=== PATIENT | female | born 1955 | race Caucasian/White ===

== ENCOUNTER 2016-07-07 01:17 | Emergency (ER) | payer SELFPAY ==
[2016-07-07] MEDS ORDERED: ASPIRIN 81 MG TABLET, CHEWABLE PO ONE (03:36)
[2016-07-07 04:43] LABS: ABSOLUTE BASOPHILS # (AUTO) 0.1 10^3/uL (0.0-0.2); ABSOLUTE EOSINOPHILS # (AUTO) 0.4 10^3/uL (0.0-0.6); ABSOLUTE LYMPHOCYTES (AUTO) 4.5 10^3/uL (0.5-4.7); ABSOLUTE MONOCYTES (AUTO) 0.8 10^3/uL (0.1-1.4); ABSOLUTE NEUT (AUTO) 4.3 10^3/uL (1.7-8.2); BASOPHILS % (AUTO) 0.9 % (0-2); EOSINOPHILS % (AUTO) 3.9 % (0-6); LYMPHOCYTES % (AUTO) 44.5 % (13-45); MEAN CORPUSCULAR HGB CONC 33.3 g/dL (32.0-36.0); MEAN CORPUSCULAR VOLUME 90 fl (80-97); MONOCYTES % (AUTO) 7.7 % (3-13); RED BLOOD COUNT 4.34 10^6/uL (3.72-5.28); RED CELL DISTRIBUTION WIDTH 13.9 % (11.5-14.0)
[2016-07-07 04:52] LABS: ALANINE AMINOTRANSFERASE 30 U/L (9-52); ALBUMIN 4.5 g/dL (3.5-5.0); ALKALINE PHOSPHATASE 83 U/L (38-126); ANION GAP 11 (5-19); APPEARANCE,URINE CLEAR; ASPARTATE AMINO TRANSFERASE 26 U/L (14-36); BILIRUBIN,TOTAL 0.3 mg/dL (0.2-1.3); BILIRUBIN,URINE NEGATIVE (NEGATIVE); BLOOD UREA NITROGEN 10 mg/dL (7-20); CALCIUM 10.9 mg/dL (8.4-10.2); CARBON DIOXIDE 25 mmol/L (22-30); CHLORIDE 107 mmol/L (98-107); CREATINE KINASE 83 U/L (30-135); CREATININE RESULT 0.78 mg/dL (0.52-1.25); GLUCOSE 91 mg/dL (75-110); GLUCOSE, URINE NEGATIVE (NEGATIVE); KETONES,URINE NEGATIVE (NEGATIVE); LEUKOCYTE ESTERASE,URINE NEGATIVE (NEGATIVE); LIPASE 235.8 U/L (23-300); NITRITE,URINE NEGATIVE (NEGATIVE); POTASSIUM 3.8 mmol/L (3.6-5.0); PROTEIN,URINE NEGATIVE (NEGATIVE); URINE SPECIFIC GRAVITY 1.006; UROBILINOGEN,URINE NEGATIVE mg/dL (<2.0)
[2016-07-07 05:03] LABS: CREATINE KINASE MB 0.65 ng/mL (<4.55)
[2016-07-07 05:05] LABS: TROPONIN I < 0.012 ng/mL
--- NOTE | 2016-07-07 05:33 | ER Document Report ---
ED Cardiac - General Chief Complaint: Chest Pain Stated Complaint: CHEST PAIN Mode of Arrival: Ambulatory Information source: Patient Notes: Patient is a 61-year-old female who presents to the ER today for chest pain with cough 1-2 weeks. Patient states that it she is having some left neck pain in the back of her neck but also states that "that's probably from sleeping wrong on it." She denies any numbness or tingling anywhere, shortness of breath, nausea, vomiting. She does have a history of COPD and asthma. TRAVEL OUTSIDE OF THE [place] IN LAST 30 DAYS: No - Related Data Allergies/Adverse Reactions: iodine [Iodine] Allergy (Unknown, Verified 09/20/11 05:21) levofloxacin [From Levaquin] Allergy (Unknown, Verified 09/20/11 05:21) Shellfish * [Shellfish] Allergy (Unknown, Verified 09/20/11 05:21) Past Medical History - General Information source: Patient - Social History Smoking Status: Current Every Day Smoker Family History: Reviewed & Not Pertinent Patient has suicidal ideation: No Patient has homicidal ideation: No - Past Medical History Cardiac Medical History: Reports: Hx Hypercholesterolemia, Hx Hypertension Pulmonary Medical History: Reports: Hx COPD Psychiatric Medical History: Reports: Hx Bipolar Disorder Past Surgical History: Reports: Hx Hysterectomy, Hx Orthopedic Surgery - carpal tunnel release, Hx Tonsillectomy, Hx Tubal Ligation - Immunizations Immunizations up to date: Yes Hx Diphtheria, Pertussis, Tetanus Vaccination: No Hx Pneumococcal Vaccination: 07/04/00 Review of Systems - Review of Systems Constitutional: No symptoms reported EENT: No symptoms reported Cardiovascular: See HPI Respiratory: No symptoms reported Gastrointestinal: No symptoms reported Genitourinary: No symptoms reported Female Genitourinary: No symptoms reported Musculoskeletal: No symptoms reported Skin: No symptoms reported Hematologic/Lymphatic: No symptoms reported Neurological/Psychological: No symptoms reported Physical Exam - Vital signs Vitals: Temp Pulse BP Pulse Ox 97.9 F 65 171/77 H 93 07/07/16 01:48 07/07/16 01:48 07/07/16 01:48 07/07/16 01:48 - Notes Notes: PHYSICAL EXAMINATION: GENERAL: Well-appearing, reading a book and resting comfortably, and in no acute distress. HEAD: Atraumatic, normocephalic. EYES: Pupils equal round and reactive to light, extraocular movements intact, sclera anicteric, conjunctiva are normal. NECK: slightly tender to palpation over left trapezius, Normal range of motion, supple without lymphadenopathy LUNGS: CTAB and equal. No wheezes rales or rhonchi. HEART/CHEST: tender to palpation over left chest only, Regular rate and rhythm without murmurs ABDOMEN: Soft, no tenderness. No guarding, no rebound BACK: no vertebral tenderness, normal ROM GI/: no CVA tenderness EXTREMITIES: Normal range of motion, no pitting edema. No cyanosis. NEUROLOGICAL: Cranial nerves grossly intact. Normal sensory/motor exams. PSYCH: Normal mood, normal affect. SKIN: Warm, Dry, normal turgor, no rashes or lesions noted Course - Re-evaluation Re-evalutation: 07/07/16 05:34 Labwork today is completely unremarkable with normal white blood cell count and normal cardiac enzymes, unremarkable chest x-ray and an EKG normal sinus rhythm at a rate of 61 bpm without evidence of abnormality or ischemia. Patient is resting comfortably reading a book in the room and came to the ER with multiple chronic complaints. I did advise her that this is not a primary care office and that she needs to follow-up with them. - Vital Signs Vital signs: Temp Pulse Resp BP Pulse Ox 97.9 F 65 171/77 H 93 07/07/16 01:48 07/07/16 01:48 07/07/16 01:48 07/07/16 01:48 - Laboratory Result Diagrams: 07/07/16 04:26 07/07/16 04:26 Laboratory results interpreted by me: 07/07/16 07/07/16 04:26 04:26 Calcium 10.9 H Urine Blood SMALL H Discharge - Discharge Clinical Impression: Cough Chest pain Qualifiers: Chest pain type: unspecified Qualified Code(s): R07.9 - Chest pain, unspecified Condition: Stable Disposition: HOME, SELF-CARE Instructions: Chest Pain of Unclear Cause ([facility]) Additional Instructions: Return immediately for any new or worsening symptoms. Follow up with primary care provider, call tomorrow to make followup appointment. Prescriptions: Benzonatate [Tessalon Perle 100 mg Capsule] 100 mg PO Q8HP PRN #40 cap PRN Reason: Azithromycin [Zithromax 250 mg Tablet] 250 mg PO ASDIR PRN #6 tablet PRN Reason: Referrals: [facility] [Provider Group] - Follow up as needed
[2016-07-07] MEDS ORDERED: AZITHROMYCIN 250 MG TABLET PO ONE (05:39)
[2016-07-07] MEDS ORDERED: BENZONATATE 100 MG CAPSULE PO ONE (05:39)
[2016-07-07 06:12] VITALS: BP 151/87
--- NOTE | 2016-07-07 15:55 | EKG REPORT ---
SEVERITY:- BORDERLINE ECG - SINUS RHYTHM BORDERLINE T ABNORMALITIES, ANT-LAT LEADS : Confirmed by: Jerad Sen 07-Jul-2016 15:55:13
== END 2016-07-07 06:12 | disposition home or self-care (01) ==
LOC: ER 01:17
DX: R07.9 Chest pain, unspecified (principal); R05 Cough; M54.2 Cervicalgia; F17.210 Nicotine dependence, cigarettes, uncomplicated
CPT/HCPCS: 36415; 71010; 80053; 81001; 82550; 82553; 83690; 84484; 85025; 93005; 93010; 99285

== ENCOUNTER 2016-08-30 23:34 | Emergency (ER) | payer SELFPAY ==
[2016-08-31] MEDS ORDERED: ASPIRIN 81 MG TABLET, CHEWABLE PO ONE (00:08)
[2016-08-31 00:47] LABS: ABSOLUTE BASOPHILS # (AUTO) 0.1 10^3/uL (0.0-0.2); ABSOLUTE EOSINOPHILS # (AUTO) 0.4 10^3/uL (0.0-0.6); ABSOLUTE LYMPHOCYTES (AUTO) 4.4 10^3/uL (0.5-4.7); ABSOLUTE MONOCYTES (AUTO) 0.8 10^3/uL (0.1-1.4); ABSOLUTE NEUT (AUTO) 6.9 10^3/uL (1.7-8.2); BASOPHILS % (AUTO) 0.7 % (0-2); EOSINOPHILS % (AUTO) 3.5 % (0-6); HEMATOCRIT 37.6 % (36.0-47.0); HEMOGLOBIN 12.6 g/dL (12.0-15.5); HGB HCT DIFFERENCE 0.2; LYMPHOCYTES % (AUTO) 34.7 % (13-45); MEAN CORPUSCULAR HEMOGLOBIN 30.7 pg (27.0-33.4); MEAN CORPUSCULAR HGB CONC 33.6 g/dL (32.0-36.0); MEAN CORPUSCULAR VOLUME 91 fl (80-97); MONOCYTES % (AUTO) 6.3 % (3-13); RED BLOOD COUNT 4.12 10^6/uL (3.72-5.28); RED CELL DISTRIBUTION WIDTH 13.9 % (11.5-14.0); SEGMENTED NEUTROPHILS % (AUTO) 54.8 % (42-78); WHITE BLOOD COUNT 12.6 10^3/uL (4.0-10.5)
[2016-08-31 01:15] LABS: ALANINE AMINOTRANSFERASE 26 U/L (9-52); ALBUMIN 4.4 g/dL (3.5-5.0); ALKALINE PHOSPHATASE 87 U/L (38-126); ANION GAP 11 (5-19); ASPARTATE AMINO TRANSFERASE 27 U/L (14-36); BILIRUBIN,TOTAL 0.4 mg/dL (0.2-1.3); BLOOD UREA NITROGEN 8 mg/dL (7-20); CARBON DIOXIDE 25 mmol/L (22-30); CHLORIDE 107 mmol/L (98-107); CREATINE KINASE 145 U/L (30-135); CREATININE RESULT 0.89 mg/dL (0.52-1.25); GLUCOSE 96 mg/dL (75-110); POTASSIUM 3.8 mmol/L (3.6-5.0); SODIUM 143.3 mmol/L (137-145)
[2016-08-31] MEDS ORDERED: HYDROCODONE/ACETAMINOPHEN 5-325 MG TABLET PO ONE (01:19)
[2016-08-31] MEDS ORDERED: IPRATROPIUM/ALBUTEROL 0.5-2.5 MG/3 ML AMPUL NEB ONE (01:20)
[2016-08-31] MEDS ORDERED: FAMOTIDINE 20 MG TABLET PO ONE (01:20)
[2016-08-31] MEDS ORDERED: PREDNISONE 20 MG TABLET PO ONE (01:20)
--- NOTE | 2016-08-31 01:22 | ER Document Report ---
ED General - General Chief Complaint: Cough Stated Complaint: CHEST PAIN/DIFFICULTY BREATHING Time seen by provider: 01:10 Notes: Patient is a 61-year-old female that comes emergency department for chief complaint of 2 weeks of symptoms of cough and worsening congestion with pain in her sinuses worse on the right side, some postnasal drainage, and she states that now her chest is very painful with each coughing episode. She denies any fevers. She reports occasional wheezing and shortness of breath. She is a daily smoker, has Advair and albuterol at home, does not currently have a primary care but has a close follow-up with one arranged already. Patient has history of GERD, denies hypertension, diabetes, or history of MS. TRAVEL OUTSIDE OF THE [place] IN LAST 30 DAYS: No - Related Data Allergies/Adverse Reactions: iodine [Iodine] Allergy (Unknown, Verified 08/30/16 23:44) levofloxacin [From Levaquin] Allergy (Unknown, Verified 08/30/16 23:44) Shellfish * [Shellfish] Allergy (Unknown, Verified 08/30/16 23:44) Past Medical History - General Information source: Patient, Relative - Social History Smoking Status: Current Every Day Smoker Chew tobacco use (# tins/day): No Smoking Education Provided: Yes - <3 min Frequency of alcohol use: None Drug Abuse: None Lives with: Family Family History: Reviewed & Not Pertinent Patient has suicidal ideation: No Patient has homicidal ideation: No - Past Medical History Cardiac Medical History: Reports: Hx Hypercholesterolemia, Hx Hypertension Pulmonary Medical History: Reports: Hx COPD Renal/ Medical History: Denies: Hx Peritoneal Dialysis Psychiatric Medical History: Reports: Hx Bipolar Disorder Past Surgical History: Reports: Hx Hysterectomy, Hx Orthopedic Surgery - carpal tunnel release, Hx Tonsillectomy, Hx Tubal Ligation - Immunizations Immunizations up to date: Yes Hx Diphtheria, Pertussis, Tetanus Vaccination: No Hx Pneumococcal Vaccination: 07/04/00 Review of Systems - Review of Systems Constitutional: No symptoms reported EENT: No symptoms reported Cardiovascular: See HPI Respiratory: See HPI Gastrointestinal: No symptoms reported Genitourinary: No symptoms reported Female Genitourinary: No symptoms reported Musculoskeletal: See HPI Skin: No symptoms reported Hematologic/Lymphatic: No symptoms reported Neurological/Psychological: No symptoms reported Physical Exam - Vital signs Vitals: Temp Pulse Resp BP Pulse Ox 98.2 F 60 20 145/74 H 98 08/30/16 23:37 08/30/16 23:37 08/30/16 23:37 08/30/16 23:37 08/30/16 23:37 Interpretation: Normal - General General appearance: Appears well, Alert In distress: None - HEENT Head: Normocephalic, Atraumatic Eyes: Normal Conjunctiva: Normal Extraocular movements intact: Yes Eyelashes: Normal Pupils: PERRL Ears: Normal External canal: Normal Tympanic membrane: Normal Sinus: Maxillary - Bilateral, worse on the left Nasal: Normal Mouth/Lips: Normal Mucous membranes: Normal Pharynx: Normal Neck: Normal - Respiratory Respiratory status: No respiratory distress. No: Labored, Tachypnea Chest status: Nontender Breath sounds: Nonproductive cough - Patient has episodes where she coughs constantly and coughs very hard, when these resolve she is calm and well- appearing with no tachypnea, labored breathing, or distress, Other - A few coarse breath sounds bilaterally. No: Wheezing - Cardiovascular Rhythm: Regular. No: Tachycardia Heart sounds: Normal auscultation, S1 appreciated, S2 appreciated Murmur: No - Abdominal Inspection: Normal Distension: No distension Bowel sounds: Normal Tenderness: Nontender Organomegaly: No organomegaly - Back Back: Normal, Nontender - Extremities General upper extremity: Normal inspection, Nontender, Normal color, Normal ROM , Normal temperature General lower extremity: Normal inspection, Nontender, Normal color, Normal ROM , Normal temperature, Normal weight bearing. No: Karen's sign - Neurological Neuro grossly intact: Yes Cognition: Normal Orientation: AAOx4 Miri Coma Scale Eye Opening: Spontaneous [place] Coma Scale Verbal: Oriented [place] Coma Scale Motor: Obeys Commands Miri Coma Scale Total: 15 Speech: Normal Motor strength normal: LUE, RUE, LLE, RLE Sensory: Normal - Psychological Associated symptoms: Normal affect, Normal mood - Skin Skin Temperature: Warm Skin Moisture: Dry Skin Color: Normal Course - Re-evaluation Re-evalutation: Patient well-appearing and conversational, however she has episodes where she has a persistent nonproductive painful cough. A few coarse breath sounds bilaterally. Patient is much improved on reexamination. Cough has been ongoing for 2 weeks. Chest x-ray, laboratory workup, EKG showed no acute findings. Examination is consistent with COPD exacerbation and bronchitis. Patient also has tender sinuses worse on the left maxillary area. Treating with antibiotics, prednisone, discussed smoking cessation, discussed primary care follow-up and return precautions, patient states understanding and agreement. - Vital Signs Vital signs: Temp Pulse Resp BP Pulse Ox 98.2 F 80 20 140/75 H 98 08/30/16 23:37 08/31/16 03:35 08/31/16 03:35 08/31/16 03:35 08/31/16 03:35 - Laboratory Result Diagrams: 08/31/16 00:25 08/31/16 00:25 Laboratory results interpreted by me: 08/31/16 08/31/16 00:25 00:25 WBC 12.6 H Calcium 11.0 H Creatine Kinase 145 H Discharge - Discharge Clinical Impression: Cough, Shortness of breath, Tobacco abuse Sinusitis Qualifiers: Sinusitis location: maxillary Chronicity: acute Recurrence: non-recurrent Qualified Code(s): J01.00 - Acute maxillary sinusitis, unspecified Condition: Stable Disposition: HOME, SELF-CARE Additional Instructions: Examination and workup are consistent with bronchitis and a sinus infection. Take the prednisone as directed, taking the azithromycin antibiotic as directed , take the [place] if needed for cough/pain, continue your inhalers. Stop smoking. Follow-up with your primary care. Return to the emergency department for any concerning or worsening symptoms. Prescriptions: Azithromycin [Zithromax 250 mg Tablet] 250 mg PO ASDIR PRN #6 tablet PRN Reason: Hydrocodone/Acetaminophen [[place] 5-325 mg Tablet] 1 - 2 tab PO ASDIR #12 tablet Prednisone 20 mg PO DAILY #15 tablet Forms: Elevated Blood Pressure
[2016-08-31 01:27] LABS: CREATINE KINASE MB 1.23 ng/mL (<4.55); TROPONIN I < 0.012 ng/mL
[2016-08-31 03:36] VITALS: BP 140/75
--- NOTE | 2016-08-31 07:59 | EKG REPORT ---
SEVERITY:- BORDERLINE ECG - SINUS RHYTHM NONSPECIFIC ST-T CHANGES ANTEROSEPTAL : Confirmed by: Seun Alvarez MD 31-Aug-2016 07:58:17
== END 2016-08-31 03:35 | disposition home or self-care (01) ==
LOC: ER 23:34
DX: J01.00 Acute maxillary sinusitis, unspecified (principal); R05 Cough; R06.02 Shortness of breath; R06.00 Dyspnea, unspecified; R07.9 Chest pain, unspecified; F17.200 Nicotine dependence, unspecified, uncomplicated; J44.9 Chronic obstructive pulmonary disease, unspecified; E78.00 Pure hypercholesterolemia, unspecified; Z90.710 Acquired absence of both cervix and uterus
CPT/HCPCS: 93005; 94640; 99284; 36415; 82553; 82550; 85025; 80053; 84484; 71020; 93010; J7512; J7620

== ENCOUNTER 2017-04-15 20:18 | Emergency (ER) | payer SELFPAY ==
[2017-04-15 20:31] VITALS: BP 152/90
--- NOTE | 2017-04-16 00:32 | ER Document Report ---
ED General - General Chief Complaint: Skin Sore(s) Stated Complaint: POSSIBLE ABSCESS Time Seen by Provider: 04/15/17 23:17 Notes: Patient is a 62-year-old female who presents with a dysplastic nevi on her mid back that has become irritating over the last 2-3 days. Patient describes the area as being itchy, with a scratching, mild discomfort. Touching area worsens her symptoms. She has not tried anything to improve her symptoms. She has had similar symptoms in the past that required surgical removal of the affected areas. She has not seen a primary care doctor regarding today's concerns. She denies any spreading redness from the area, fever or constitutional symptoms. TRAVEL OUTSIDE OF THE [place] IN LAST 30 DAYS: No - Related Data Allergies/Adverse Reactions: iodine [Iodine] Allergy (Unknown, Verified 04/15/17 20:29) levofloxacin [From Levaquin] Allergy (Unknown, Verified 04/15/17 20:29) Shellfish * [Shellfish] Allergy (Unknown, Verified 04/15/17 20:29) Past Medical History - General Information source: Patient - Social History Smoking Status: Never Smoker Frequency of alcohol use: None Drug Abuse: None Lives with: Spouse/Significant other Family History: Reviewed & Not Pertinent Patient has suicidal ideation: No Patient has homicidal ideation: No - Past Medical History Cardiac Medical History: Reports: Hx Hypercholesterolemia, Hx Hypertension Pulmonary Medical History: Reports: Hx COPD Renal/ Medical History: Denies: Hx Peritoneal Dialysis Psychiatric Medical History: Reports: Hx Bipolar Disorder Past Surgical History: Reports: Hx Hysterectomy, Hx Orthopedic Surgery - carpal tunnel release, Hx Tonsillectomy, Hx Tubal Ligation - Immunizations Immunizations up to date: Yes Hx Diphtheria, Pertussis, Tetanus Vaccination: No Hx Pneumococcal Vaccination: 07/04/00 Review of Systems - Review of Systems Notes: Constitutional: Negative for fever. Cardiovascular: Negative for chest pain. Respiratory: Negative for shortness of breath. Gastrointestinal: Negative for vomiting Musculoskeletal: Negative for back pain. Skin: Negative for rash. Neurological: Negative for weakness or numbness. 10 point ROS negative except as marked above and in HPI. Physical Exam - Vital signs Vitals: Temp Pulse Resp BP Pulse Ox 98.2 F 71 18 152/90 H 98 04/15/17 20:29 04/15/17 20:29 04/15/17 20:29 04/15/17 20:29 04/15/17 20:29 Interpretation: Hypertensive Notes: PHYSICAL EXAMINATION: GENERAL: Well-appearing, well-nourished and in no acute distress. HEAD: Atraumatic, normocephalic. EYES: sclera anicteric, conjunctiva are normal. ENT: Moist mucous membranes. NECK: Normal range of motion LUNGS: Normal work of breathing HEART: 2+ radial pulses bilaterally EXTREMITIES: no pitting or edema. No cyanosis. NEUROLOGICAL: No focal neurological deficits. Moves all extremities spontaneously and on command. PSYCH: Normal mood, normal affect. SKIN: Warm, Dry, normal turgor, there is a small dysplastic nevi on the low right back that appears to be irritated somewhat scabbed over but no surrounding cellulitis Course - Re-evaluation Re-evalutation: 04/16/17 00:30 Patient presents with a raised nevi that appears to be irritated with small amount of bleeding. I have recommended that she see a mainstreaming facilitator for surgical removal of the area. There is no surrounding cellulitis or evidence of an abscess. No indication for labs or imaging. At this time will discharge with return precautions and follow-up recommendations. Verbal discharge instructions given a the bedside and opportunity for questions given. Medication warnings reviewed. Patient is in agreement with this plan and has verbalized understanding of return precautions and the need for primary care follow-up in the next 24-72 hours. - Vital Signs Vital signs: Temp Pulse Resp BP Pulse Ox 98.2 F 71 18 152/90 H 98 04/15/17 20:29 04/15/17 20:29 04/15/17 20:29 04/15/17 20:29 04/15/17 20:29 Discharge - Discharge Clinical Impression: Dysplastic nevi Condition: Good Disposition: HOME, SELF-CARE Additional Instructions: Apply the triamcinolone cream that she had at home as needed for itching. Follow-up with a mainstreaming facilitator or primary doctor for removal of this area. Return for any additional concerns you may have.
== END 2017-04-16 00:42 | disposition home or self-care (01) ==
LOC: ER 20:18
DX: D22.5 Melanocytic nevi of trunk (principal); E78.00 Pure hypercholesterolemia, unspecified; I10 Essential (primary) hypertension; J44.9 Chronic obstructive pulmonary disease, unspecified; Z90.710 Acquired absence of both cervix and uterus; Z91.013 Allergy to seafood
CPT/HCPCS: 99283

== ENCOUNTER 2017-09-27 23:50 | Observation (INO) | payer SELFPAY ==
[2017-09-28] MEDS ORDERED: ASPIRIN 81 MG TABLET, CHEWABLE PO ONE (00:28)
[2017-09-28] MEDS ORDERED: NITROGLYCERIN 2% OINTMENT 1 GM PACKET TP ONE (01:37)
[2017-09-28 01:39] LABS: ABSOLUTE BASOPHILS # (AUTO) 0.1 10^3/uL (0.0-0.2); ABSOLUTE EOSINOPHILS # (AUTO) 0.2 10^3/uL (0.0-0.6); ABSOLUTE LYMPHOCYTES (AUTO) 3.9 10^3/uL (0.5-4.7); ABSOLUTE MONOCYTES (AUTO) 0.7 10^3/uL (0.1-1.4); ABSOLUTE NEUT (AUTO) 6.4 10^3/uL (1.7-8.2); BASOPHILS % (AUTO) 0.7 % (0-2); EOSINOPHILS % (AUTO) 2.1 % (0-6); HEMATOCRIT 38.3 % (36.0-47.0); LYMPHOCYTES % (AUTO) 34.7 % (13-45); MEAN CORPUSCULAR VOLUME 91 fl (80-97); MONOCYTES % (AUTO) 6.2 % (3-13); PLATELET COUNT 240 10^3/uL (150-450); RED CELL DISTRIBUTION WIDTH 13.4 % (11.5-14.0); SEGMENTED NEUTROPHILS % (AUTO) 56.3 % (42-78); TOTAL CELLS COUNTED % (AUTO) 100 %; WHITE BLOOD COUNT 11.4 10^3/uL (4.0-10.5)
[2017-09-28 01:53] LABS: ALANINE AMINOTRANSFERASE 34 U/L (9-52); ALBUMIN 4.5 g/dL (3.5-5.0); ALKALINE PHOSPHATASE 96 U/L (38-126); ANION GAP 9 (5-19); ASPARTATE AMINO TRANSFERASE 30 U/L (14-36); BILIRUBIN,DIRECT 0.3 mg/dL (0.0-0.4); BILIRUBIN,TOTAL 0.3 mg/dL (0.2-1.3); BLOOD UREA NITROGEN 16 mg/dL (7-20); CALCIUM 11.5 mg/dL (8.4-10.2); CARBON DIOXIDE 28 mmol/L (22-30); CHLORIDE 104 mmol/L (98-107); CREATINE KINASE 183 U/L (30-135); GLUCOSE 116 mg/dL (75-110); POTASSIUM 3.9 mmol/L (3.6-5.0); SODIUM 140.7 mmol/L (137-145); TOTAL PROTEIN 7.3 g/dL (6.3-8.2)
--- NOTE | 2017-09-28 01:59 | RADIOLOGY REPORT (SQ) ---
EXAM DESCRIPTION: CHEST SINGLE VIEW CLINICAL HISTORY: 62 years Female, cp COMPARISON: 2.28.17 NUMBER OF VIEWS/TECHNIQUE: 1/AP LIMITATIONS: None. FINDINGS: Normal lung volume, clear parenchyma, normal cardiac silhouette, and intact bony thorax. IMPRESSION: No acute cardiopulmonary findings.
[2017-09-28 02:05] LABS: TROPONIN I < 0.012 ng/mL
[2017-09-28] MEDS ORDERED: MORPHINE SULFATE 10 MG/ML INJ IV ONE (02:40)
[2017-09-28] MEDS ORDERED: ONDANSETRON HCL INJ/PF 4 MG/2 ML SDV IV ONE (02:40)
[2017-09-28] MEDS ORDERED: NORMAL SALINE 500 ML IV ONE (02:40)
--- NOTE | 2017-09-28 03:13 | ER Document Report ---
ED General - General Chief Complaint: Chest Pain Stated Complaint: CHEST PAIN Time Seen by Provider: 09/28/17 01:23 TRAVEL OUTSIDE OF THE [place] IN LAST 30 DAYS: No - HPI Patient complains to provider of: Chest pain Notes: Patient coming in for acute onset of chest pain earlier this evening associated with diaphoresis shortness of breath and radiation to the left arm. Patient does have a history of hyperlipidemia hypertension patient also currently smokes smoking for approximately 50 years. Patient also states recently traveled to [place] approximately 1 month ago. Patient denies history of DVT PE. Patient states when the chest pain he had she also felt like she needed to have a bowel movement. Patient upon my evaluation states she is feeling much better now still having some intermittent sharp pain however nothing like she had prior to arrival. Patient also has a history of acid reflux bipolar depression and hypothyroid. - Related Data Allergies/Adverse Reactions: iodine [Iodine] Allergy (Unknown, Verified 04/15/17 20:29) levofloxacin [From Levaquin] Allergy (Unknown, Verified 04/15/17 20:29) Shellfish * [Shellfish] Allergy (Unknown, Verified 04/15/17 20:29) Past Medical History - Social History Smoking Status: Current Every Day Smoker Family History: Reviewed & Not Pertinent Patient has suicidal ideation: No Patient has homicidal ideation: No - Past Medical History Cardiac Medical History: Reports: Hx Hypercholesterolemia, Hx Hypertension Pulmonary Medical History: Reports: Hx COPD Renal/ Medical History: Denies: Hx Peritoneal Dialysis Psychiatric Medical History: Reports: Hx Bipolar Disorder Past Surgical History: Reports: Hx Hysterectomy, Hx Orthopedic Surgery - carpal tunnel release, Hx Tonsillectomy, Hx Tubal Ligation - Immunizations Immunizations up to date: Yes Hx Diphtheria, Pertussis, Tetanus Vaccination: No Hx Pneumococcal Vaccination: 07/04/00 Review of Systems - Review of Systems Constitutional: No symptoms reported EENT: No symptoms reported Cardiovascular: Chest pain Respiratory: No symptoms reported Gastrointestinal: No symptoms reported Genitourinary: No symptoms reported Female Genitourinary: No symptoms reported Musculoskeletal: No symptoms reported Skin: No symptoms reported Hematologic/Lymphatic: No symptoms reported Neurological/Psychological: No symptoms reported -: Yes All other systems reviewed and negative Physical Exam - Vital signs Vitals: Temp Pulse Resp BP Pulse Ox 98.2 F 71 16 128/61 H 97 09/28/17 00:19 09/28/17 00:19 09/28/17 00:19 09/28/17 00:19 09/28/17 00:19 Interpretation: Normal - General General appearance: Appears well, Alert - HEENT Head: Normocephalic, Atraumatic Eyes: Normal Pupils: PERRL - Respiratory Respiratory status: No respiratory distress Chest status: Nontender Breath sounds: Normal Chest palpation: Normal - Cardiovascular Rhythm: Regular Heart sounds: Normal auscultation Murmur: No - Abdominal Inspection: Normal Distension: No distension Bowel sounds: Normal Tenderness: Nontender Organomegaly: No organomegaly - Back Back: Normal, Nontender - Extremities General upper extremity: Normal inspection, Nontender, Normal color, Normal ROM , Normal temperature General lower extremity: Normal inspection, Nontender, Normal color, Normal ROM , Normal temperature, Normal weight bearing. No: Karen's sign - Neurological Neuro grossly intact: Yes Cognition: Normal Orientation: AAOx4 Miri Coma Scale Eye Opening: Spontaneous Miri Coma Scale Verbal: Oriented [place] Coma Scale Motor: Obeys Commands [place] Coma Scale Total: 15 Speech: Normal Motor strength normal: LUE, RUE, LLE, RLE Sensory: Normal - Psychological Associated symptoms: Normal affect, Normal mood - Skin Skin Temperature: Warm Skin Moisture: Dry Skin Color: Normal Course - Re-evaluation Re-evalutation: 09/28/17 03:08 EKG initial laboratory studies not show significant pathology. Negative d- dimer negative troponin. Chest x-ray is also negative. Because of the patient' s presentation currently not chest pain-free will discuss with the hospitalist for further evaluation and admission. - Vital Signs Vital signs: Temp Pulse Resp BP Pulse Ox 98.2 F 71 14 84/47 L 94 09/28/17 00:19 09/28/17 00:19 09/28/17 06:01 09/28/17 06:01 09/28/17 06:01 - Laboratory Result Diagrams: 09/28/17 01:25 09/28/17 01:25 Laboratory results interpreted by me: 09/28/17 09/28/17 01:25 01:25 WBC 11.4 H Glucose 116 H Calcium 11.5 H Creatine Kinase 183 H Discharge - Discharge Clinical Impression: Chest pain Qualifiers: Chest pain type: unspecified Qualified Code(s): R07.9 - Chest pain, unspecified Disposition: ADMITTED OBSERVATION Admitting Provider: Hospitalist - [facility] Admitted: Telemetry
[2017-09-28] MEDS ORDERED: MAG HYDROX/AL HYDROX/SIMETH SUSP 30 ML UDCUP PO ONE (03:14)
[2017-09-28] MEDS ORDERED: LIDOCAINE 2% VISCOUS SOLN 20 ML UDCUP PO ONE (03:14)
[2017-09-28] MEDS ORDERED: METOCLOPRAMIDE HCL ORAL SOLN 10 MG/10 ML UDCUP PO ONE (03:14)
[2017-09-28] MEDS ORDERED: DEXTROSE 40% GEL 15 GM TUBE PO PRN ×2 (03:55)
[2017-09-28] MEDS ORDERED: DIAZEPAM 5 MG TABLET PO PRN (03:55)
[2017-09-28] MEDS ORDERED: NITROGLYCERIN 0.4 MG/TAB 25 TAB/BOTTLE SL PRN (03:55)
[2017-09-28] MEDS ORDERED: DEXTROSE 50%-WATER 25 GM/50 ML DISP.SYRIN IV PRN ×2 (03:55)
[2017-09-28] MEDS ORDERED: MORPHINE SULFATE 10 MG/ML INJ IV PRN (03:55)
[2017-09-28] MEDS ORDERED: GLUCAGON,HUMAN RECOMB 1 MG INJ SUBCUT PRN (03:55)
[2017-09-28 04:49] LABS: CREATINE KINASE MB 1.59 ng/mL (<4.55)
[2017-09-28 04:52] LABS: TROPONIN I < 0.012 ng/mL
[2017-09-28 05:35] LABS: APPEARANCE,URINE CLEAR; BILIRUBIN,URINE NEGATIVE (NEGATIVE); COLOR,URINE YELLOW; GLUCOSE, URINE NEGATIVE (NEGATIVE); KETONES,URINE NEGATIVE (NEGATIVE); LEUKOCYTE ESTERASE,URINE NEGATIVE (NEGATIVE); NITRITE,URINE NEGATIVE (NEGATIVE); PROTEIN,URINE NEGATIVE (NEGATIVE); UROBILINOGEN,URINE NEGATIVE mg/dL (<2.0)
[2017-09-28 05:47] LABS: URINE AMPHETAMINES SCREEN NEGATIVE; URINE BARBITURATES SCREEN NEGATIVE; URINE BENZODIAZEPINES SCREEN NEGATIVE; URINE COCAINE SCREEN NEGATIVE; URINE MARIJUANA (THC) SCREEN NEGATIVE; URINE METHADONE SCREEN NEGATIVE; URINE PHENCYCLIDINE SCREEN NEGATIVE
[2017-09-28] MEDS ORDERED: INFLUENZA ADLT QUAD (36MOS+) 2017-18 VAC 0.5 ML SYR IM PRN (06:52)
[2017-09-28] MEDS ORDERED: LANSOPRAZOLE 30 MG TAB.RAP.DR PO ONE (07:30)
--- NOTE | 2017-09-28 07:56 | EKG REPORT ---
SEVERITY:- NORMAL ECG - SINUS RHYTHM : Confirmed by: Seun Alvarez MD 28-Sep-2017 07:55:39
[2017-09-28] MEDS ORDERED: LANSOPRAZOLE 30 MG TAB.RAP.DR PO SCH (08:00)
[2017-09-28] MEDS ORDERED: ALBUTEROL SULFATE 0.083% NEB 2.5 MG/3 ML AMPUL NEB PRN (09:31)
[2017-09-28] MEDS ORDERED: BENAZEPRIL HCL 5 MG TABLET PO SCH ×2 (10:00)
[2017-09-28 10:55] LABS: CREATINE KINASE MB 1.15 ng/mL (<4.55)
[2017-09-28 11:02] LABS: TROPONIN I < 0.012 ng/mL
[2017-09-28] MEDS: DOCUSATE SODIUM 100 MG CAPSULE PO SCH ×2 (11:28→17:30)
[2017-09-28] MEDS: ASPIRIN 81 MG TABLET, CHEWABLE PO SCH (11:29)
[2017-09-28] MEDS: FLUTICASONE/SALMETEROL DISKUS 250-50 MCG/DOSE IH SCH ×2 (12:17→22:33)
--- NOTE | 2017-09-28 15:48 | PDOC PROGRESS REPORT ---
Subjective Progress Note for:: 09/28/17 Subjective:: The patient is a 62-year-old female with past medical history of hypothyroidism , hypertension, COPD, GERD who was admitted on 09/27/17 for atypical chest pain described as chest pressure radiating to her left arm associated with a sensation of needing a bowel movement that resolved spontaneously prior to arrival in the emergency department. Patient is seen on morning rounds. She is found resting in bed comfortably on room air while eating her breakfast. She denies any further episodes of chest pain since presenting to the emergency department last night. She denies headache, dizziness, chest pain, palpitations, dyspnea, orthopnea, abdominal pain, nausea vomiting or diarrhea. She does report that she had a cardiac cath completed in 2002 with report of 20 % blockage of single artery. She confirms that she had a stress test and echocardiogram completed approximately 3-5 years ago but does not recall the results of these tests. He is previously a patient of Dr. Adame but does not have a criminalist at current. She has no new questions or concerns at this time. Reason For Visit: CHEST PAIN, COPD, TOBACCO Physical Exam Vital Signs: Temp Pulse Resp BP Pulse Ox 98.1 F 68 16 105/53 L 98 09/28/17 11:38 09/28/17 11:38 09/28/17 11:38 09/28/17 11:38 09/28/17 11:38 Intake & Output 09/27/17 09/28/17 09/29/17 06:59 06:59 06:59 Weight 71.8 kg General appearance: PRESENT: no acute distress, well-developed, well-nourished, other - Overweight Head exam: PRESENT: atraumatic, normocephalic Eye exam: PRESENT: conjunctiva pink, EOMI, PERRLA. ABSENT: scleral icterus Ear exam: PRESENT: normal external ear exam Mouth exam: PRESENT: moist, tongue midline Neck exam: ABSENT: carotid bruit, JVD, lymphadenopathy, thyromegaly Respiratory exam: PRESENT: clear to auscultation frantz, symmetrical, unlabored. ABSENT: rales, rhonchi, wheezes Cardiovascular exam: PRESENT: RRR, +S1, +S2. ABSENT: diastolic murmur, rubs, systolic murmur Pulses: PRESENT: normal dorsalis pedis pul Vascular exam: PRESENT: normal capillary refill GI/Abdominal exam: PRESENT: normal bowel sounds, soft. ABSENT: distended, guarding, mass, organolmegaly, rebound, tenderness Rectal exam: PRESENT: deferred Extremities exam: PRESENT: full ROM. ABSENT: calf tenderness, clubbing, pedal edema Neurological exam: PRESENT: alert, awake, oriented to person, oriented to place , oriented to time, oriented to situation, CN II-XII grossly intact. ABSENT: motor sensory deficit Psychiatric exam: PRESENT: appropriate affect, normal mood. ABSENT: homicidal ideation, suicidal ideation Skin exam: PRESENT: dry, intact, warm. ABSENT: cyanosis, rash Results Laboratory Results: 09/28/17 09/28/17 04:10 05:05 TSH 4.68 Urine Color YELLOW Urine Appearance CLEAR Urine pH 7.0 Ur Specific [place] 1.010 Urine Protein NEGATIVE Urine Glucose (UA) NEGATIVE Urine Ketones NEGATIVE Urine Blood SMALL H Urine Nitrite NEGATIVE Ur Leukocyte Esterase NEGATIVE Urine WBC (Auto) 0 Urine RBC (Auto) 3 09/28/17 09/28/17 04:00 09:54 CK-MB (CK-2) 1.59 1.15 Troponin I < 0.012 < 0.012 Impressions: Chest X-Ray 09/28/17 00:28 IMPRESSION: No acute cardiopulmonary findings. Assessment & Plan - Diagnosis (1) Chest pain Qualifiers: Chest pain type: unspecified Qualified Code(s): R07.9 - Chest pain, unspecified Is this a current diagnosis for this admission?: Yes Plan: The patient is admitted to the floor on continuous cardiac telemetry. Serial troponins are negative at this point. We will obtain an echocardiogram as the patient is unsure of previous history of heart failure. Nuclear stress test is scheduled for tomorrow. We will further stratify risk with lipid and A1c to be obtained with morning labs. (2) Hypertension Is this a current diagnosis for this admission?: Yes Plan: We will continue the patient's home medications; lisinopril/hydrochlorothiazide. (3) Hypothyroidism Is this a current diagnosis for this admission?: Yes Plan: We will continue the patient's home dose levothyroxine. (4) COPD (chronic obstructive pulmonary disease) Is this a current diagnosis for this admission?: Yes Plan: COPD without exacerbation. We will continue the patient's home medication; Advair. (5) GERD (gastroesophageal reflux disease) Is this a current diagnosis for this admission?: Yes Plan: PPI (6) Hyperlipidemia Is this a current diagnosis for this admission?: Yes Plan: Continue atorvastatin - Time Time Spent with patient: 15-24 minutes Medications reviewed and adjusted accordingly: Yes Anticipated discharge: Home Within: within 24 hours
[2017-09-28 16:51] LABS: CREATINE KINASE MB 0.86 ng/mL (<4.55)
[2017-09-28 16:55] LABS: TROPONIN I < 0.012 ng/mL
[2017-09-28] MEDS: IBUPROFEN 600 MG TABLET PO PRN (17:30)
--- NOTE | 2017-09-28 18:14 | XCELERA REPORT ---
[address] [address] Transthoracic Echocardiogram Report Name: AYLIN TRAN Age: 62 yrs Gender: Female : 1955 Patient Status: Inpatient Patient Location: [address] [place] [address] Study Date: 09/28/2017 02:11 PM Height: 63 in Weight: 158 lb BSA: 1.7 m2 Procedure: A complete two-dimensional transthoracic echocardiogram was performed (2D, M-mode, spectral and color flow Doppler). The study was technically adequate with some images being suboptimal in quality. Reason For Study: chest pain Ordering Physician: MARK MUSEC Performed By: Lolly Badillo Interpretation Summary There is no mitral valve stenosis. There is a trace amount of mitral regurgitation There is no aortic valve stenosis No aortic regurgitation is present. There is a trace or physiologic amount of tricuspid regurgitation Tricuspid regurgitation jet envelope not well defined to measure RV systolic pressure accurately. The aortic root is not well visualized but is probably normal size. The inferior vena cava appeared normal and decreased > 50% with respiration (RAP 5-10 mmHg) There is no pericardial effusion. MMode/2D Measurements & Calculations RVDd: 3.2 cm LVIDd: 4.0 cm FS: 30.7 % Ao root diam: 3.4 cm IVSd: 0.88 cm LVIDs: 2.8 cm EDV(Teich): 71.0 ml LVPWd: 1.0 cm ESV(Teich): 29.2 ml Ao root area: 8.9 cm2 EF(Teich): 58.9 % LA dimension: 2.6 cm Doppler Measurements & Calculations MV E max gianni: MV P1/2t max gianni: Ao V2 max: LV V1 max P.5 cm/sec 79.5 cm/sec 142.5 cm/sec 3.6 mmHg MV A max gianni: MV P1/2t: 65.6 msec Ao max PG: LV V1 max: 96.3 cm/sec 8.1 mmHg 94.8 cm/sec MV E/A: 0.84 MVA(P1/2t): 3.4 cm2 MV dec slope: 355.0 cm/sec2 PA V2 max: 94.8 cm/sec PA max P.6 mmHg Left Ventricle The left ventricle is grossly normal size. There is borderline concentric left ventricular hypertrophy. The left ventricular ejection fraction is normal. Doppler measurements suggest pseudonormalized left ventricular relaxation, which is associated with grade II/IV or mild to moderate diastolic dysfunction. Wall motion cannot be accurately commented on, but no definite regional wall motion abnormalities noted. Right Ventricle Borderline right ventricular enlargement. There is normal right ventricular wall thickness. The right ventricular systolic function is normal. Atria The right atrium is normal in size. The left atrial size is normal. Interarterial septum not well visualized and not well dopplered. Cannot comment on ASD/PFO presence. Mitral Valve The mitral valve is grossly normal. There is no mitral valve stenosis. There is a trace amount of mitral regurgitation. Aortic Valve The aortic valve is grossly normal. There is no aortic valve stenosis. No aortic regurgitation is present. Tricuspid Valve The tricuspid valve is not well visualized, but is grossly normal. There is no tricuspid stenosis. There is a trace or physiologic amount of tricuspid regurgitation. Tricuspid regurgitation jet envelope not well defined to measure RV systolic pressure accurately. Pulmonic Valve The pulmonic valve is not well visualized. Great Vessels The aortic root is not well visualized but is probably normal size. The inferior vena cava appeared normal and decreased > 50% with respiration (RAP 5-10 mmHg). Effusions There is no pericardial effusion. : NOHEMY MUSE > Jerad Sen
[2017-09-28] MEDS ORDERED: SALMETEROL IH SCH (22:00)
[2017-09-28] MEDS ORDERED: FLUTICASONE IH SCH (22:00)
[2017-09-28] MEDS: ATORVASTATIN CALCIUM 40 MG TABLET PO SCH (22:35)
[2017-09-28] MEDS: CITALOPRAM HYDROBROMIDE 20 MG TABLET PO SCH (22:37)
[2017-09-28] MEDS: TRAZODONE HCL 50 MG TABLET PO SCH (22:37)
[2017-09-29] MEDS ORDERED: LANSOPRAZOLE 30 MG TAB.RAP.DR PO SCH (06:00)
[2017-09-29] MEDS: LANSOPRAZOLE 30 MG TAB.RAP.DR PO SCH (06:02)
[2017-09-29] MEDS: LEVOTHYROXINE SODIUM 0.1 MG TABLET PO SCH (06:02)
[2017-09-29 07:48] LABS: CHOLESTEROL 176.84 mg/dL (0-200); TRIGLYCERIDES 67 mg/dL (<150)
[2017-09-29 07:49] LABS: ANION GAP 8 (5-19); BLOOD UREA NITROGEN 17 mg/dL (7-20); CALCIUM 10.3 mg/dL (8.4-10.2); CARBON DIOXIDE 29 mmol/L (22-30); CHLORIDE 105 mmol/L (98-107); CREATINE KINASE 73 U/L (30-135); GLUCOSE 104 mg/dL (75-110); SODIUM 141.6 mmol/L (137-145)
[2017-09-29 08:00] LABS: DIRECT LDL 97 mg/dL (<100)
[2017-09-29] MEDS ORDERED: (PENDING PHARMACY ID) (Lisinopril/Hydrochlorothiazide [Zestoretic 20-25 Mg Tablet] 1 EACH) PO SCH (10:00)
[2017-09-29] MEDS: ASPIRIN 81 MG TABLET, CHEWABLE PO SCH (11:24)
[2017-09-29] MEDS: DOCUSATE SODIUM 100 MG CAPSULE PO SCH ×2 (11:25→17:51)
[2017-09-29] MEDS: FLUTICASONE/SALMETEROL DISKUS 250-50 MCG/DOSE IH SCH ×2 (11:26→22:04)
[2017-09-29] MEDS: HYDROCHLOROTHIAZIDE 25 MG TABLET PO SCH (11:27)
[2017-09-29] MEDS: LISINOPRIL 10 MG TABLET PO SCH (11:29)
[2017-09-29] MEDS ORDERED: NITROGLYCERIN 0.4 MG/TAB 25 TAB/BOTTLE SL ONE (11:40)
--- NOTE | 2017-09-29 13:00 | PDOC CONSULTATION ---
Consultation Consult Date: 09/28/17 Attending physician:: ESTER DE LA ROSA Consult reason:: Chest pain History of Present Illness Admission Date/PCP: 09/28/17 03:50 GIOVANNI MURCIA MD Patient complains of: Chest pain History of Present Illness: AYLIN TRAN is a 62 year old female, coming in for acute onset of chest pain earlier this evening associated with diaphoresis shortness of breath and radiation to the left arm. Patient does have a history of hyperlipidemia hypertension patient also currently smokes smoking for approximately 50 years. Patient also states recently traveled to [place] approximately 1 month ago. Patient denies history of DVT PE. Patient states when the chest pain he had she also felt like she needed to have a bowel movement. Patient upon my evaluation states she is feeling much better now still having some intermittent sharp pain however nothing like she had prior to arrival. Patient also has a history of acid reflux bipolar depression and hypothyroid. This history obtained by the ER physician was reviewed. Patient denied any recurrence of chest pain. There is questionable history of some blockages being noted based on his stress test several years ago. Patient denies any history of prior heart catheterization. Patient claims to be under quite a bit of stress and may have some underlying depression. Past Medical History Cardiac Medical History: Reports: Hyperlipidema, Hypertension Pulmonary Medical History: Reports: Chronic Obstructive Pulmonary Disease (COPD) Psychiatric Medical History: Reports: Bipolar Disorder, Depression Past Surgical History Past Surgical History: Reports: Hysterectomy, Orthopedic Surgery - carpal tunnel release, Tonsillectomy, Tubal Ligation Social History Information Source: Patient Smoking Status: Current Every Day Smoker Cigarettes Packs Per Day: 0.5 Number of Years Smokin Frequency of Alcohol Use: None Drugs: None Family History Family History: Hypertension Parental Family History Reviewed: Yes Children Family History Reviewed: Yes Sibling(s) Family History Reviewed.: Yes Medication/Allergy Home Medications: Albuterol Sulfate [Proair HFA] 2 puff IH Q4HP PRN 09/28/17 Fluticasone/Salmeterol [Advair HFA 115-21 mcg Inhaler] 1 puff IH Q12 09/28/17 Levothyroxine Sodium [Synthroid 0.1 mg Tablet] 0.1 mg PO Q6AM 09/28/17 Lisinopril/Hydrochlorothiazide [Zestoretic 20-25 mg Tablet] 1 each PO DAILY Pantoprazole Sodium [Protonix] 40 mg PO QAM 09/28/17 Simvastatin [Zocor 40 mg Tablet] 40 mg PO QHS 09/28/17 Aspirin [Aspirin 81 mg Chewable Tablet] 81 mg PO DAILY tab.chew 09/30/17 Citalopram Hydrobromide [Celexa 20 mg Tablet] 10 mg PO QHS tablet 09/30/17 Fluticasone/Salmeterol [Advair 250-50 Diskus 14 Dose/Diskus] 1 inh IH Q12 inhaler 09/30/17 Lansoprazole [Prevacid 30 mg Odt Tablet] 30 mg PO Q6AM tab.rap.dr 09/30/17 Nicotine [Nicoderm 14 mg/24 Hr Transdermal Patch] 1 patch TD DAILY #30 patch.td24 09/30/17 Polyethylene Glycol 3350 [Miralax Powder 17 gm/Packet] 17 gm PO DAILY powd.pack 09/30/17 Trazodone HCl [Desyrel 50 mg Tablet] 75 mg PO QHS tablet 09/30/17 Allergies/Adverse Reactions: iodine [Iodine] Allergy (Unknown, Verified 04/15/17 20:29) levofloxacin [From Levaquin] Allergy (Unknown, Verified 04/15/17 20:29) Shellfish * [Shellfish] Allergy (Unknown, Verified 04/15/17 20:29) Review of Systems Review of Systems: Please see history of present illness and past medical history as wall. Constitutional: No fever or chills reported. Head : No recent chronic headaches, recent head injury. Eyes: No recent eye pain, diplopia, redness, discharge, acute visual changes. Ears: No recent chronic ear pain, acute hearing loss, ear discharge. Oral cavity: No recent ulcerations, bleeding, oral cavity discomfort. Neck: No recent acute neck pain reported. Hematologic: No recent easy bruising or bleeding or hematologic malignancy reported. Lymphatic: No recent lymphatic malignancy, chronic lymphadenopathy reported yet Cardiovascular system review: See history of present illness. Respiratory system review: No recent chronic cough, hemoptysis, blood clots in the lungs reported. Mild Shortness of breath on exertion Gastrointestinal system review: Negative for any recent acute or chronic abdominal pain, hematemesis, melena, recent change in bowel habits. Genitourinary system review: No recent acute or chronic hematuria, flank pain, UTI etc. reported. Skin system review: Negative for any recent abnormal bruising, no rash, no pruritus reported. Neurologic: No prior history of strokes, mini strokes, seizure disorder. Psychologic: History of depression and bipolar disorder reported. Musculoskeletal: Minor aches and pains reported. No acute joint swelling reported. Endocrine: No recent polyuria, polydipsia, recent heat or cold intolerance. Physical Exam Vital Signs: Temp Pulse Resp BP Pulse Ox 98.1 F 85 16 105/53 L 98 09/28/17 11:38 09/28/17 14:00 09/28/17 11:38 09/28/17 11:38 09/28/17 11:38 Intake & Output 09/27/17 09/28/17 09/29/17 06:59 06:59 06:59 Weight 71.8 kg Exam: GENERAL: well-nourished and in no acute distress. Alert and oriented x3 HEAD: Atraumatic, normocephalic. EYES: Pupils equal round and reactive to light, extraocular movements intact, sclera anicteric, conjunctiva are normal. ENT: TMs normal, nares patent, oropharynx clear without exudates. Moist mucous membranes. No oral ulcerations or bleeding gums noted NECK: supple without lymphadenopathy. Trachea is central. No cervical or axillary lymphadenopathy noted. Carotids are 2+, JVD WNL LUNGS: Respiration seems nonlabored, no significant accessory muscle action noted. Breath sounds clear to auscultation bilaterally and equal noted. No wheezes rales or rhonchi noted. No significant dullness noted on percussion. CHEST: Palpation of the chest wall shows no significant chest wall tenderness. No other significant abnormalities noted. HEART: [place] [employer] NANNY, No PSH, 1/6 SAE aortic area, 1/6 vides systolic murmur mitral area, no rubs, no gallops. ABDOMEN: Soft, no significant tenderness appreciated, normoactive bowel sounds. No guarding, no rebound. No rigidity noted . No masses appreciated. EXTREMITIES: Pedal pulses are 1-2+, no calf tenderness noted. No clubbing or cyanosis.trace to 1+ pedal edema noted NEUROLOGICAL: Focused neurological exam showed no significant neurologic deficit. Normal speech, no focal weakness appreciated. PSYCH: Normal mood, normal affect. Judgment and insight within normal limits. SKIN: No significant ecchymosis, skin is noted to be warm. MUSCULOSKELETAL EXAM: No significant acute joint swelling noted. Results Laboratory Results: 09/28/17 09/28/17 04:10 05:05 TSH 4.68 Urine Color YELLOW Urine Appearance CLEAR Urine pH 7.0 Ur Specific [place] 1.010 Urine Protein NEGATIVE Urine Glucose (UA) NEGATIVE Urine Ketones NEGATIVE Urine Blood SMALL H Urine Nitrite NEGATIVE Ur Leukocyte Esterase NEGATIVE Urine WBC (Auto) 0 Urine RBC (Auto) 3 09/28/17 09/28/17 09/28/17 04:00 09:54 16:04 CK-MB (CK-2) 1.59 1.15 0.86 Troponin I < 0.012 < 0.012 < 0.012 EKG Comments: Normal sinus rhythm, No acute ST-T wave changes noted. Impressions: Chest X-Ray 09/28/17 00:28 IMPRESSION: No acute cardiopulmonary findings. Assessment & Plan - Diagnosis (1) Chest pain Qualifiers: Chest pain type: unspecified Qualified Code(s): R07.9 - Chest pain, unspecified Is this a current diagnosis for this admission?: Yes (2) COPD (chronic obstructive pulmonary disease) Qualifiers: COPD type: unspecified COPD Qualified Code(s): J44.9 - Chronic obstructive pulmonary disease, unspecified Is this a current diagnosis for this admission?: Yes (3) GERD (gastroesophageal reflux disease) Qualifiers: Esophagitis presence: esophagitis presence not specified Qualified Code(s) : K21.9 - Gastro-esophageal reflux disease without esophagitis Is this a current diagnosis for this admission?: Yes (4) Hyperlipidemia Qualifiers: Hyperlipidemia type: unspecified Qualified Code(s): E78.5 - Hyperlipidemia , unspecified Is this a current diagnosis for this admission?: Yes (5) Hypertension Qualifiers: Hypertension type: essential hypertension Qualified Code(s): I10 - Essential (primary) hypertension Is this a current diagnosis for this admission?: Yes (6) Hypothyroidism Qualifiers: Hypothyroidism type: unspecified Qualified Code(s): E03.9 - Hypothyroidism , unspecified Is this a current diagnosis for this admission?: Yes (7) Dysthymia Is this a current diagnosis for this admission?: Yes - Notes Notes: Chest pain: Patient has some typical and atypical features of chest pain. Cardiac enzymes so far has been negative. Electrocardiogram did not show any definitive ST segment changes. Multiple differential diagnoses exist in this patient. In descending order of probability this includes underlying coronary artery disease, gastroesophageal reflux, musculoskeletal pain, referred pain from elsewhere, anxiety panic disorder etc.Patient has significant cardiac risk factors, which indicates that there is a intermediate probability of chest discomfort coming from underlying CAD. Feel that it would need to be evaluated further. Discussed evaluation to assess this. In this regard risk benefits of nuclear stress test and other alternative processes were discussed in detail. The patient prefers to undergo nuclear stress test. The small risk of radiation , myocardial infarction, , cardiac arrhythmias, respiratory distress etc. were discussed. Patient understood the risks and gave informed consent. Nuclear stress test was therefore scheduled. For risk evaluation, patient is also being scheduled for a 2-D echocardiogram. Patient questions were answered. COPD patient encouraged to avoid first-hand and secondhand smoking. Patient also advised to avoid environmental pollutants. Patient to use bronchodilator and steroid therapy as has been prescribed by PMD and other specialists. GERD: Patient seems to have this condition. Proton pump inhibitors and other antacids are recommended. Hyperlipidemia: LDL goal is less than 100. Recommend statin therapy at least intermediate or high dose, of high potency status. Periodic lipid panel and liver panel is indicated. Patient to report any significant muscle discomfort or other side effects. Hypertension: Blood pressure goal in this patient is 140/90 or less. This was discussed with the patient. Currently blood pressure under reasonable control. Hypothyroidism: Continue replacement therapy. Underlying depression and bipolar disorder: Continue current management plans. - Time Time Spent: 30 to 50 Minutes - CODE STATUS was discussed, patient remains full code. Multiple medical problems were addressed. More than 50% of the time spent coordinating care, discussing management plans with involved caregivers. Management plans discussed with involved personnels. Medical decision making was of moderate to high complexity, patient's has multiple comorbidities. Medications reviewed and adjusted accordingly: Yes
--- NOTE | 2017-09-29 13:03 | PDOC PROGRESS REPORT ---
Subjective Progress Note for:: 09/29/17 Subjective:: Patient seems to be doing better. Pt is denying any chest arm or neck discomfort. Patient denying any PND, orthopnea. Patient denied any sustained palpitations, dizziness, syncope, near syncope. Patient denying any fever chills. Patient denying any other significant discomfort. Patient was scheduled to have a nuclear stress test but drank coffee this morning therefore this could not be performed. Patient unfortunately cannot walk on the treadmill. Patient is maintaining sinus rhythm. Review of systems: Rest review of systems negative. Medications: Medications have been reviewed. Reason For Visit: CHEST PAIN, COPD, TOBACCO Physical Exam Vital Signs: Temp Pulse Resp BP Pulse Ox 98 F 65 16 117/56 L 96 09/29/17 11:00 09/29/17 11:00 09/29/17 11:00 09/29/17 11:09/29/17 11:00 Intake & Output 09/28/17 09/29/17 09/30/17 06:59 06:59 06:59 Weight 71.8 kg 72.8 kg Exam: GENERAL: well-nourished and in no acute distress. Alert and oriented x3 HEAD: Atraumatic, normocephalic. EYES: Pupils equal round and reactive to light, extraocular movements intact, sclera anicteric, conjunctiva are normal. ENT: TMs normal, nares patent, oropharynx clear without exudates. Moist mucous membranes. No oral ulcerations or bleeding gums noted NECK: supple without lymphadenopathy. Trachea is central. No cervical or axillary lymphadenopathy noted. Carotids are 2+, JVD WNL LUNGS: Respiration seems nonlabored, no significant accessory muscle action noted. Breath sounds clear to auscultation bilaterally and equal noted. No wheezes rales or rhonchi noted. No significant dullness noted on percussion. CHEST: Palpation of the chest wall shows no significant chest wall tenderness. No other significant abnormalities noted. 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 ABDOMEN: Soft, no significant tenderness appreciated, normoactive bowel sounds. No guarding, no rebound. No rigidity noted . No masses appreciated. EXTREMITIES: Pedal pulses are 1-2+, no calf tenderness noted. No clubbing or cyanosis.trace to 1+ pedal edema noted NEUROLOGICAL: Focused neurological exam showed no significant neurologic deficit. Normal speech, no focal weakness appreciated. PSYCH: Normal mood, normal affect. Judgment and insight within normal limits. SKIN: No significant ecchymosis, skin is noted to be warm. MUSCULOSKELETAL EXAM: No significant acute joint swelling noted. Results Laboratory Results: 09/29/17 06:42 09/29/17 09/29/17 06:42 06:42 Sodium 141.6 Potassium 4.0 Chloride 105 Carbon Dioxide 29 Anion Gap 8 BUN 17 Creatinine 0.72 Est GFR ( Amer) > 60 Est GFR (Non-Af Amer) > 60 Glucose 104 Calcium 10.3 H Triglycerides 67 Cholesterol 176.84 LDL Cholesterol Direct 97 VLDL Cholesterol 13.0 HDL Cholesterol 65 09/28/17 09/28/17 09/28/17 04:00 09:54 16:04 Creatine Kinase CK-MB (CK-2) 1.59 1.15 0.86 Troponin I < 0.012 < 0.012 < 0.012 09/29/17 06:42 Creatine Kinase 73 CK-MB (CK-2) Troponin I Impressions: Chest X-Ray 09/28/17 00:28 IMPRESSION: No acute cardiopulmonary findings. Assessment & Plan - Diagnosis (1) Chest pain Qualifiers: Chest pain type: unspecified Qualified Code(s): R07.9 - Chest pain, unspecified Is this a current diagnosis for this admission?: Yes (2) COPD (chronic obstructive pulmonary disease) Qualifiers: COPD type: unspecified COPD Qualified Code(s): J44.9 - Chronic obstructive pulmonary disease, unspecified Is this a current diagnosis for this admission?: Yes (3) GERD (gastroesophageal reflux disease) Qualifiers: Esophagitis presence: esophagitis presence not specified Qualified Code(s) : K21.9 - Gastro-esophageal reflux disease without esophagitis Is this a current diagnosis for this admission?: Yes (4) Hyperlipidemia Qualifiers: Hyperlipidemia type: unspecified Qualified Code(s): E78.5 - Hyperlipidemia , unspecified Is this a current diagnosis for this admission?: Yes (5) Hypertension Qualifiers: Hypertension type: essential hypertension Qualified Code(s): I10 - Essential (primary) hypertension Is this a current diagnosis for this admission?: Yes (6) Hypothyroidism Qualifiers: Hypothyroidism type: unspecified Qualified Code(s): E03.9 - Hypothyroidism , unspecified Is this a current diagnosis for this admission?: Yes (7) Dysthymia Is this a current diagnosis for this admission?: Yes - Notes Notes: Chest pain: Patient to be evaluated by a nuclear stress test. So far cardiac enzymes and EKG has been unremarkable. 2D echo reviewed shows normal LVEF. COPD: Currently stable. Patient advised to quit smoking. Gastroesophageal reflux: This is an differential diagnosis of chest pain. Patient to continue with current antacid therapy. Dyslipidemia: Recommend statin therapy for LDL over 100. Hypertension: Blood pressure under reasonable control. Hypothyroidism: Continue with replacement therapy. Anxiety depression/Bipolar disorder: Continue current regimen. - Time Time with patient: 15-25 minutes - CODE STATUS was discussed, patient remains full code. Multiple medical problems were addressed. More than 50% of the time spent coordinating care, discussing management plans with involved caregivers. Management plans discussed with involved personnels. Medical decision making was of moderate to high complexity, patient's has multiple comorbidities. Medications reviewed and adjusted accordingly: Yes
--- NOTE | 2017-09-29 13:09 | EKG REPORT ---
SEVERITY:- NORMAL ECG - SINUS RHYTHM : Confirmed by: Seun Alvarez MD 29-Sep-2017 13:08:53
[2017-09-29] MEDS ORDERED: NORMAL SALINE 1000 ML 500 ML IV ONE (13:15)
[2017-09-29] MEDS: IBUPROFEN 600 MG TABLET PO PRN (13:43)
--- NOTE | 2017-09-29 16:27 | PDOC PROGRESS REPORT ---
Subjective Progress Note for:: 09/29/17 Subjective:: The patient is a 62-year-old female with past medical history of hypothyroidism , hypertension, COPD, GERD who was admitted on 09/27/17 for atypical chest pain described as chest pressure radiating to her left arm associated with a sensation of needing a bowel movement that resolved spontaneously prior to arrival in the emergency department. Patient is seen this afternoon. She is found resting in bed on room air. She has just returned from having the resting portion of her stress test. Unfortunately, the patient did drink coffee with her breakfast this morning and so was unable to complete the stress portion. This has been rescheduled for yesterday. The patient states that since time of injection, she has had chest pain radiating to her back that is worsened with ambulating to the restroom. She denies diaphoresis, dyspnea, nausea. She states that the sensation is enlarged to the previous episode. She states that she also has a sensation of needing to have a bowel movement. She is provided sublingual nitro, placed on supplemental oxygen per protocol, is ordered a repeat EKG and serial troponins. Reason For Visit: CHEST PAIN, COPD, TOBACCO Physical Exam Vital Signs: Temp Pulse Resp BP Pulse Ox 98.1 F 64 16 107/66 94 09/29/17 15:11 09/29/17 15:11 09/29/17 15:11 09/29/17 15:11 09/29/17 15:11 Intake & Output 09/28/17 09/29/17 09/30/17 06:59 06:59 06:59 Weight 71.8 kg 72.8 kg General appearance: PRESENT: no acute distress, cooperative, well-developed, well-nourished, other - Overweight Head exam: PRESENT: atraumatic, normocephalic Eye exam: PRESENT: conjunctiva pink, EOMI, PERRLA. ABSENT: scleral icterus Ear exam: PRESENT: normal external ear exam Mouth exam: PRESENT: moist, tongue midline Neck exam: ABSENT: carotid bruit, JVD, lymphadenopathy, thyromegaly Respiratory exam: PRESENT: clear to auscultation frantz, symmetrical, unlabored. ABSENT: rales, rhonchi, wheezes Cardiovascular exam: PRESENT: RRR, +S1, +S2. ABSENT: diastolic murmur, rubs, systolic murmur, tachycardia Pulses: PRESENT: normal dorsalis pedis pul Vascular exam: PRESENT: normal capillary refill GI/Abdominal exam: PRESENT: normal bowel sounds, soft. ABSENT: distended, guarding, mass, organolmegaly, rebound, tenderness Rectal exam: PRESENT: deferred Extremities exam: PRESENT: full ROM. ABSENT: calf tenderness, clubbing, pedal edema Neurological exam: PRESENT: alert, awake, oriented to person, oriented to place , oriented to time, oriented to situation, CN II-XII grossly intact. ABSENT: motor sensory deficit Psychiatric exam: PRESENT: anxious, appropriate affect, normal mood. ABSENT: homicidal ideation, suicidal ideation Skin exam: PRESENT: dry, intact, warm. ABSENT: cyanosis, rash Results Laboratory Results: 09/29/17 06:42 09/29/17 09/29/17 06:42 06:42 Sodium 141.6 Potassium 4.0 Chloride 105 Carbon Dioxide 29 Anion Gap 8 BUN 17 Creatinine 0.72 Est GFR ( Amer) > 60 Est GFR (Non-Af Amer) > 60 Glucose 104 Calcium 10.3 H Triglycerides 67 Cholesterol 176.84 LDL Cholesterol Direct 97 VLDL Cholesterol 13.0 HDL Cholesterol 65 09/28/17 09/28/17 09/28/17 04:00 09:54 16:04 Creatine Kinase CK-MB (CK-2) 1.59 1.15 0.86 Troponin I < 0.012 < 0.012 < 0.012 09/29/17 09/29/17 06:42 12:33 Creatine Kinase 73 CK-MB (CK-2) Troponin I < 0.012 Impressions: Chest X-Ray 09/28/17 00:28 IMPRESSION: No acute cardiopulmonary findings. Assessment & Plan - Diagnosis (1) Chest pain Qualifiers: Chest pain type: unspecified Qualified Code(s): R07.9 - Chest pain, unspecified Is this a current diagnosis for this admission?: Yes Plan: The patient is admitted to the floor on continuous cardiac telemetry. Serial troponins are negative at this point. We will repeat troponins as the patient is complaining of chest pain following injection for stress test. Echocardiogram demonstrates a normal LVEF. There is mild to moderate diastolic dysfunction. We will obtain an echocardiogram as the patient is unsure of previous history of heart failure. Stress test is scheduled for tomorrow. Lipid panel is acceptable. Hemo-globin A1c is pending. The patient is provided sublingual nitro 3 for acute chest pain. Supplemental oxygen as needed per protocols. IV morphine is available. Cardiology has been consulted; appreciate Dr. Sen's assistance. (2) Hypertension Qualifiers: Hypertension type: essential hypertension Qualified Code(s): I10 - Essential (primary) hypertension Is this a current diagnosis for this admission?: Yes Plan: We will continue the patient's home medications; lisinopril/hydrochlorothiazide. (3) Hypothyroidism Qualifiers: Hypothyroidism type: unspecified Qualified Code(s): E03.9 - Hypothyroidism , unspecified Is this a current diagnosis for this admission?: Yes Plan: We will continue the patient's home dose levothyroxine. (4) COPD (chronic obstructive pulmonary disease) Qualifiers: COPD type: unspecified COPD Qualified Code(s): J44.9 - Chronic obstructive pulmonary disease, unspecified Is this a current diagnosis for this admission?: Yes Plan: COPD without exacerbation. We will continue the patient's home medication; Advair. (5) GERD (gastroesophageal reflux disease) Qualifiers: Esophagitis presence: esophagitis presence not specified Qualified Code(s) : K21.9 - Gastro-esophageal reflux disease without esophagitis Is this a current diagnosis for this admission?: Yes Plan: PPI (6) Hyperlipidemia Qualifiers: Hyperlipidemia type: unspecified Qualified Code(s): E78.5 - Hyperlipidemia , unspecified Is this a current diagnosis for this admission?: Yes Plan: Lipid panel is acceptable; continue atorvastatin. - Time Time Spent with patient: 15-24 minutes Anticipated discharge: Home Within: within 24 hours
[2017-09-29] MEDS ORDERED: POLYETHYLENE GLYCOL 3350 POWDER 17 GM/1 PACKET PO ONE (18:00)
[2017-09-29] MEDS ORDERED: IBUPROFEN 600 MG TABLET PO PRN (18:18)
[2017-09-29] MEDS: ATORVASTATIN CALCIUM 40 MG TABLET PO SCH (22:04)
[2017-09-29] MEDS: CITALOPRAM HYDROBROMIDE 20 MG TABLET PO SCH (22:06)
[2017-09-29] MEDS: TRAZODONE HCL 50 MG TABLET PO SCH (22:06)
[2017-09-30] MEDS: LANSOPRAZOLE 30 MG TAB.RAP.DR PO SCH (07:02)
[2017-09-30] MEDS: LEVOTHYROXINE SODIUM 0.1 MG TABLET PO SCH (07:04)
[2017-09-30] MEDS ORDERED: POLYETHYLENE GLYCOL 3350 POWDER 17 GM/1 PACKET PO SCH (10:00)
[2017-09-30] MEDS ORDERED: MINERAL OIL ENEMA 133 ML PR ONE (10:30)
--- NOTE | 2017-09-30 10:30 | RADIOLOGY REPORT (SQ) ---
EXAM DESCRIPTION: CT CHEST WITHOUT COMPLETED DATE/TIME: 09/30/2017 9:56 am REASON FOR STUDY: CP COMPARISON: Chest radiograph 09/28/2017 TECHNIQUE: CT scan performed of the chest without intravenous contrast. Images reviewed with lung, soft tissue and bone windows. Reconstructed coronal and sagittal MPR images reviewed. All images st ored on PACS. All CT scanners at this facility use dose modulation, iterative reconstruction, and/or weight based d osing when appropriate to reduce radiation dose to as low as reasonably achievable (ALARA). [facility]: Dose Right [facility]: CareDose [facility]: Dose Right [facility]: Teradose 4D [facility]: Smart [employer] RADIATION DOSE: CT Rad equipment meets quality standard of care and radiation dose reduction techniq ues were employed. CTDIvol: 10.5 mGy. DLP: 407 mGy-cm. mGy. LIMITATIONS: No technical limitations. FINDINGS: LUNGS AND PLEURA: No masses, infiltrates, pneumothorax. No pleural effusions, calcificati ons. HILAR AND MEDIASTINAL STRUCTURES: No identified masses or abnormal nodes. No obvious aneurysm. HEART AND VASCULAR STRUCTURES: No aneurysm. No pericardial effusion. UPPER ABDOMEN: No significant findings. Limited exam. THYROID AND OTHER SOFT TISSUES: No masses. No adenopathy. BONES: Mild scoliosis. No acute abnormality. HARDWARE: None in the chest. OTHER: No other significant findings. IMPRESSION: NO SIGNIFICANT FINDING ON NON-CONTRASTED CHEST CT. TECHNICAL DOCUMENTATION: JOB ID: [id number] Quality ID # [id number]: Final reports with documentation of one or more dose reduction techniques (e.g., Au tomated exposure control, adjustment of the mA and/or kV according to patient size, use of iterative reconstruction technique) 2010 [employer]- All Rights Reserved Reading location - IP/workstation name: [email or web address]
[2017-09-30] MEDS: LISINOPRIL 10 MG TABLET PO SCH (11:39)
[2017-09-30] MEDS: ASPIRIN 81 MG TABLET, CHEWABLE PO SCH (11:39)
[2017-09-30] MEDS: HYDROCHLOROTHIAZIDE 25 MG TABLET PO SCH (11:41)
[2017-09-30] MEDS: DOCUSATE SODIUM 100 MG CAPSULE PO SCH (11:41)
[2017-09-30] MEDS: FLUTICASONE/SALMETEROL DISKUS 250-50 MCG/DOSE IH SCH (11:45)
[2017-09-30] MEDS ORDERED: REGADENOSON INJ 0.4 MG/5 ML DISP.SYRIN IV ONE (12:05)
--- NOTE | 2017-09-30 12:15 | DRAGON STRESS TEST REPORT ---
INTRAVENOUS LEXISCAN CARDIOLITE STRESS TEST USING SINGLE PHOTON EMMISION COMPUTERIZED TOMOGRAPHIC. DATE OF PROCEDURE: September 30, 2017, INDICATION : Chest pain CARDIAC RISK FACTORS: Diabetes, hypertension, dyslipidemia RESTING EKG: Sinus rhythm without any baseline ST-T wave changes STRESS EKG: No significant ST segment changes noted with LexiScan bolus REASON FOR TERMINATION: Protocol. PROCEDURE REPORT: Baseline heart rate 50 beats per minute with blood pressure of 103/77. Patient had no significant complaints. Patient was bolused with Lexiscan 0.4 mg intravenously followed by saline bolus. Heart rate at 2 minutes post bolus 97 with a blood pressure of 128/76. 3 minutes post bolus heart rate 67 with blood pressure of 103/74. No significant EKG changes were noted. Patient had no significant complaints during the procedure or postprocedure. Patient did come in with rather constant chest pain and it persisted throughout the chest without any worsening with pharmacologic stress agent. The chest pain clinically was felt to be noncardiac and EKGs did not show any ST segment changes. Patient injected with Aminophyllin 75 mg at 3 minutes or later after Lexiscan bolus. CONCLUSIONS: Normal EKG and hemodynamic response to IV LexiScan. NUCLEAR DATA: At rest the patient was given 12.30 millicuries of technetium 99 sestamibi injected intravenously. As per protocol rest gated SPECT images were obtained. On day of stress test, the patient was given intravenous LexiScan at a dose of 0.4 mg in 5 mL intravenously, followed by flush with normal saline. Subsequently the stress dose of 35.6 millicuries of technetium 99 sestamibi was injected intravenously. As per protocol stress gated images were obtained. NUCLEAR INTERPRETATION: Both raw and processed data were used for interpretation. Visual, qualitative, computer-generated quantitative data was used. There was good myocardial uptake of technetium compound. Motion artifact and soft tissue attenuations were noted. Increased visceral uptake was noted. No definitive areas of transient perfusion defect noted, No definitive areas of fixed perfusion defect or scars noted. EKG gated imaging showed LV EF at 54 %, rest and stress gated EF similar visually. T. I D. ratio was 1.14. Lung heart ratio noted to be within normal limits 0.34. No significant extracardiac and abnormal radiotracer activities were noted. RV free wall uptake was noted to be WNL. IMPRESSION: Also refer to comments under nuclear interpretation. Also test results needs to be interpreted in the context of pretest probability. 1. No definitive areas of transient perfusion defect noted. 2. There is no definitive scintigraphic evidence of myocardial infarction/scar. 3. EKG gated imaging shows left ventricular ejection fraction of approx. 54 %. 4. Clinical correlation requested as occasionally single vessel disease or balanced ischemia could be missed. In approximately 10% of the cases Lexiscan may not cause adequate vasodilatory stress. RECOMMENDATIONS: Aggressive risk factor modification and medical management. Further evaluation may be needed if continued symptoms or other high risk indicators are noted on clinical evaluation. Close cardiology follow-up is also recommended. Clinical correlation with echocardiogram derived ejection fraction. Inability to exercise by itself can lead to increased cardiovascular event risks. Consider cardiology consultation and or follow-up if clinically indicated. 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 MARY ANN
--- NOTE | 2017-09-30 12:21 | PDOC PROGRESS REPORT ---
Subjective Progress Note for:: 09/30/17 Subjective:: Patient seems to be doing better. Patient claims to have chest pain all morning. She also had some spells yesterday but EKG and cardiac enzymes were negative. Today she underwent nuclear stress test without any complications. Patient denying any PND, orthopnea. Patient denied any sustained palpitations, dizziness, syncope, near syncope. Patient denying any fever chills. Patient denying any other significant discomfort. Patient is maintaining sinus rhythm. Review of systems: Rest review of systems negative. Medications: Medications have been reviewed. Reason For Visit: CHEST PAIN, COPD, TOBACCO Physical Exam Vital Signs: Temp Pulse Resp BP Pulse Ox 97.9 F 61 20 110/48 L 96 09/30/17 07:31 09/30/17 07:31 09/30/17 07:31 09/30/17 07:31 09/30/17 07:31 Intake & Output 09/29/17 09/30/17 10/01/17 06:59 06:59 06:59 Intake Total 1566 Output Total 2300 Balance -734 Weight 72.8 kg 72.7 kg Exam: GENERAL: well-nourished and in no acute distress. Alert and oriented x3 HEAD: Atraumatic, normocephalic. EYES: Pupils equal round and reactive to light, extraocular movements intact, sclera anicteric, conjunctiva are normal. ENT: TMs normal, nares patent, oropharynx clear without exudates. Moist mucous membranes. No oral ulcerations or bleeding gums noted NECK: supple without lymphadenopathy. Trachea is central. No cervical or axillary lymphadenopathy noted. Carotids are 2+, JVD WNL LUNGS: Respiration seems nonlabored, no significant accessory muscle action noted. Breath sounds clear to auscultation bilaterally and equal noted. No wheezes rales or rhonchi noted. No significant dullness noted on percussion. CHEST: Palpation of the chest wall shows no significant chest wall tenderness. No other significant abnormalities noted. 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 ABDOMEN: Soft, no significant tenderness appreciated, normoactive bowel sounds. No guarding, no rebound. No rigidity noted . No masses appreciated. EXTREMITIES: Pedal pulses are 1-2+, no calf tenderness noted. No clubbing or cyanosis.trace pedal edema noted NEUROLOGICAL: Focused neurological exam showed no significant neurologic deficit. Normal speech, no focal weakness appreciated. PSYCH: Normal mood, normal affect. Judgment and insight within normal limits. SKIN: No significant ecchymosis, skin is noted to be warm. MUSCULOSKELETAL EXAM: No significant acute joint swelling noted. Results Laboratory Results: 09/29/17 06:42 09/28/17 09/28/17 09/28/17 04:00 09:54 16:04 Creatine Kinase CK-MB (CK-2) 1.59 1.15 0.86 Troponin I < 0.012 < 0.012 < 0.012 09/29/17 09/29/17 09/29/17 06:42 12:33 16:50 Creatine Kinase 73 CK-MB (CK-2) Troponin I < 0.012 < 0.012 09/29/17 23:27 Creatine Kinase CK-MB (CK-2) Troponin I < 0.012 Impressions: Chest X-Ray 09/28/17 00:28 IMPRESSION: No acute cardiopulmonary findings. Chest CT 09/30/17 00:00 IMPRESSION: NO SIGNIFICANT FINDING ON NON-CONTRASTED CHEST CT. Assessment & Plan - Diagnosis (1) Chest pain Qualifiers: Chest pain type: unspecified Qualified Code(s): R07.9 - Chest pain, unspecified Is this a current diagnosis for this admission?: Yes (2) COPD (chronic obstructive pulmonary disease) Qualifiers: COPD type: unspecified COPD Qualified Code(s): J44.9 - Chronic obstructive pulmonary disease, unspecified Is this a current diagnosis for this admission?: Yes (3) GERD (gastroesophageal reflux disease) Qualifiers: Esophagitis presence: esophagitis presence not specified Qualified Code(s) : K21.9 - Gastro-esophageal reflux disease without esophagitis Is this a current diagnosis for this admission?: Yes (4) Hyperlipidemia Qualifiers: Hyperlipidemia type: unspecified Qualified Code(s): E78.5 - Hyperlipidemia , unspecified Is this a current diagnosis for this admission?: Yes (5) Hypertension Qualifiers: Hypertension type: essential hypertension Qualified Code(s): I10 - Essential (primary) hypertension Is this a current diagnosis for this admission?: Yes (6) Hypothyroidism Qualifiers: Hypothyroidism type: unspecified Qualified Code(s): E03.9 - Hypothyroidism , unspecified Is this a current diagnosis for this admission?: Yes (7) Dysthymia Is this a current diagnosis for this admission?: Yes - Notes Notes: Chest pain: Evaluated by a nuclear stress test which did not show any evidence of pharmacologic stress-induced ischemia. So far cardiac enzymes and EKG has been unremarkable. 2D echo reviewed shows normal LVEF. Recommend evaluating patient for noncardiac chest pain. If noncardiac chest pain is negative and patient keeps on having chest pain then heart catheterization may ultimately become necessary. However have low suspicion of significant obstructive CAD. COPD: Currently stable. Patient advised to quit smoking. Gastroesophageal reflux: This is an differential diagnosis of chest pain. Patient to continue with current antacid therapy. Have increased dose of proton pump inhibitor therapy Dyslipidemia: Recommend statin therapy for LDL over 100. Hypertension: Blood pressure under reasonable control. Hypothyroidism: Continue with replacement therapy. Anxiety depression/Bipolar disorder: Continue current regimen. May consider optimizing therapy. Tobacco abuse: Patient has been advised to quit smoking. - Time Time with patient: Greater than 35 minutes - CODE STATUS was discussed, patient remains full code. Multiple medical problems were addressed. More than 50% of the time spent coordinating care, discussing management plans with involved caregivers. Management plans discussed with involved personnels. Medical decision making was of moderate to high complexity, patient's has multiple comorbidities. Medications reviewed and adjusted accordingly: Yes
[2017-09-30 16:21] VITALS: BP 120/50
[2017-09-30] MEDS ORDERED: LANSOPRAZOLE 30 MG TAB.RAP.DR PO SCH (17:00)
--- NOTE | 2017-09-30 20:56 | PDOC DISCHARGE SUMMARY ---
General - Admit/Disc Date/PCP Admission Date/Primary Care Provider: 09/28/17 03:50 GIOVANNI MURCIA MD Discharge Date: 09/30/17 - Discharge Diagnosis (1) Chest pain Is this a current diagnosis for this admission?: Yes (2) Hypertension Is this a current diagnosis for this admission?: Yes (3) Hypothyroidism Is this a current diagnosis for this admission?: Yes (4) COPD (chronic obstructive pulmonary disease) Is this a current diagnosis for this admission?: Yes (5) GERD (gastroesophageal reflux disease) Is this a current diagnosis for this admission?: Yes (6) Hyperlipidemia Is this a current diagnosis for this admission?: Yes - Additional Information Discharge Diet: Cardiac Discharge Activity: Activity As Tolerated, Slowly Increase Activity Prescriptions: Nicotine [Nicoderm 14 mg/24 Hr Transdermal Patch] 1 patch TD DAILY #30 patch.td24 Pantoprazole Sodium [Protonix] 40 mg PO DAILY #30 tablet. Home Medications: Albuterol Sulfate [Proair HFA] 2 puff IH Q4HP PRN 09/28/17 Fluticasone/Salmeterol [Advair HFA 115-21 mcg Inhaler] 1 puff IH Q12 09/28/17 Levothyroxine Sodium [Synthroid 0.1 mg Tablet] 0.1 mg PO Q6AM 09/28/17 Lisinopril/Hydrochlorothiazide [Zestoretic 20-25 mg Tablet] 1 each PO DAILY Pantoprazole Sodium [Protonix] 40 mg PO QAM 09/28/17 Simvastatin [Zocor 40 mg Tablet] 40 mg PO QHS 09/28/17 Aspirin [Aspirin 81 mg Chewable Tablet] 81 mg PO DAILY tab.chew 09/30/17 Citalopram Hydrobromide [Celexa 20 mg Tablet] 10 mg PO QHS tablet 09/30/17 Fluticasone/Salmeterol [Advair 250-50 Diskus 14 Dose/Diskus] 1 inh IH Q12 inhaler 09/30/17 Lansoprazole [Prevacid 30 mg Odt Tablet] 30 mg PO Q6AM tab.rap. 09/30/17 Nicotine [Nicoderm 14 mg/24 Hr Transdermal Patch] 1 patch TD DAILY #30 patch.td24 09/30/17 Pantoprazole Sodium [Protonix] 40 mg PO DAILY #30 tablet. 09/30/17 Polyethylene Glycol 3350 [Miralax Powder 17 gm/Packet] 17 gm PO DAILY powd.pack 09/30/17 Trazodone HCl [Desyrel 50 mg Tablet] 75 mg PO QHS tablet 09/30/17 History of Present Illness History of Present Illness: AYLIN TRAN is a 62 year old female with past medical history of hypothyroidism, hypertension, COPD, GERD who was admitted on 09/27/17 for atypical chest pain described as chest pressure radiating to her left arm associated with a sensation of needing a bowel movement that resolved spontaneously prior to arrival in the emergency department. Hospital Course Hospital Course: The patient was admitted for observational chest pain rule-out. Inital EKG demonstrated a normal sinus rhythm without acute findings. Serial troponins were negative. Chest xray did not show any acute cardiopulmonary findings. An echocardiogram was obtained; demonstrating a preserved ejection fraction with mild to moderate diastolic dysfunction. The patient received the injection for nuclear stress testing and subsequently developed chest pain radiating to her left arm and mid-back releaved by two doses of SL nitro. A repeat EKG demonstrated normal sinus rhythm without ST segment elevation or depression. A repeat set of troponins were negative. The following morning, the patient again developed chest pain described as similar to her reflux symtpoms. She was able to complete the nuclear stress test which revealed a normal EKG and hemodynamic response to IV LexiScan. A follow up non-contrasted CT of the chest was obtained; the radialogist did not identify any abnormal findings. However, as reviewed by myself and Crew Leader, there may be some subtle evidence of esophagitis. Of note, the patient states she has been without her protonix prescription for over a month. At time of discharge, the patient is in stable condition, pain free, maintaining oxygen saturations while on room air and tolerating a regular diet. She is advised to take a daily Aspirin 81 mg. She is strongly encouraged to discontinue smoking. She is provided prescriptions for protonix 40 mg po daily and Nicoderm patches. She is instructed to follow up with her primary care provider within 1 week. Physical Exam Vital Signs: Temp Pulse Resp BP Pulse Ox 97.6 F 58 L 16 120/50 L 96 09/30/17 15:19 09/30/17 15:19 09/30/17 15:19 09/30/17 15:19 09/30/17 15:19 Intake & Output 09/29/17 09/30/17 10/01/17 06:59 06:59 06:59 Intake Total 1566 Output Total 2300 Balance -734 Weight 72.8 kg 72.7 kg General appearance: PRESENT: no acute distress, well-developed, well-nourished, other - overweight Head exam: PRESENT: atraumatic, normocephalic Eye exam: PRESENT: conjunctiva pink, EOMI, PERRLA. ABSENT: scleral icterus Ear exam: PRESENT: normal external ear exam Mouth exam: PRESENT: moist, tongue midline Neck exam: ABSENT: carotid bruit, JVD, lymphadenopathy, thyromegaly Respiratory exam: PRESENT: clear to auscultation frantz, symmetrical, unlabored. ABSENT: rales, rhonchi, wheezes Cardiovascular exam: PRESENT: RRR, +S1, +S2. ABSENT: diastolic murmur, rubs, systolic murmur Pulses: PRESENT: normal dorsalis pedis pul Vascular exam: PRESENT: normal capillary refill GI/Abdominal exam: PRESENT: normal bowel sounds, soft. ABSENT: distended, guarding, mass, organolmegaly, rebound, tenderness Rectal exam: PRESENT: deferred Extremities exam: PRESENT: full ROM. ABSENT: calf tenderness, clubbing, pedal edema Neurological exam: PRESENT: alert, awake, oriented to person, oriented to place , oriented to time, oriented to situation, CN II-XII grossly intact. ABSENT: motor sensory deficit Psychiatric exam: PRESENT: appropriate affect, normal mood. ABSENT: homicidal ideation, suicidal ideation Skin exam: PRESENT: dry, intact, warm. ABSENT: cyanosis, rash Results Laboratory Results: 09/29/17 06:42 09/28/17 09/28/17 09/28/17 04:00 09:54 16:04 Creatine Kinase CK-MB (CK-2) 1.59 1.15 0.86 Troponin I < 0.012 < 0.012 < 0.012 09/29/17 09/29/17 09/29/17 06:42 12:33 16:50 Creatine Kinase 73 CK-MB (CK-2) Troponin I < 0.012 < 0.012 09/29/17 23:27 Creatine Kinase CK-MB (CK-2) Troponin I < 0.012 Impressions: Chest X-Ray 09/28/17 00:28 IMPRESSION: No acute cardiopulmonary findings. Chest CT 09/30/17 00:00 IMPRESSION: NO SIGNIFICANT FINDING ON NON-CONTRASTED CHEST CT. Qualifiers - * PATEINT BEING DISCHARGED WITH ANY OF THE FOLLOWING DIAGNOSIS?: No
== END 2017-09-30 16:01 | disposition home or self-care (01) ==
LOC: ER 23:50 → EH 09-28 03:50 → 5 09-28 06:37
PROVIDERS: ADMIT Internal Medicine; ATTEND Internal Medicine
DX: R07.9 Chest pain, unspecified (principal); I10 Essential (primary) hypertension; F17.210 Nicotine dependence, cigarettes, uncomplicated; E03.9 Hypothyroidism, unspecified; J44.9 Chronic obstructive pulmonary disease, unspecified; K21.9 Gastro-esophageal reflux disease without esophagitis; E78.5 Hyperlipidemia, unspecified; Z23 Encounter for immunization
CPT/HCPCS: 93005 ×2; 99285; 96361; 96374; 96375; 36415 ×2; 82553; 82550 ×2; 83735; 84443; 85025; 80048; 80053; 81001; 84484 ×2; 80307; 83036; 85379; 80061; 93306; 93017; 71045; 78452; 71250; 90686; 93010 ×2; 94660; A9500; J2785; J3490 ×6; J2270 ×2; J2405; J7030; J7040; Q9969; G0378

== ENCOUNTER 2017-11-26 22:48 | Emergency (ER) | payer SELFPAY ==
[2017-11-26 22:59] VITALS: BP 120/80
--- NOTE | 2017-11-26 23:52 | ER Document Report ---
ED Foreign Body - General Chief Complaint: Foreign Body in Ear Stated Complaint: LEFT EAR PAIN Time Seen by Provider: 11/26/17 23:50 Mode of Arrival: Ambulatory Information source: Patient TRAVEL OUTSIDE OF THE [place] IN LAST 30 DAYS: No - HPI Patient complains to provider of: Foreign body left ear Onset: Just prior to arrival Notes: Patient is here with complaints of foreign body in the left ear. She states that she wears hearing aids, when she put her hearing aids out of her ear the ear piece from the left hearing aid remained in her ear canal. She was unable to get it out. No pain. No drainage. No fever. No nausea, vomiting, diarrhea. No dizziness. She has had this happen to her in the past. She denies any other complaints at this time. - Related Data Allergies/Adverse Reactions: iodine [Iodine] Allergy (Unknown, Verified 04/15/17 20:29) levofloxacin [From Levaquin] Allergy (Unknown, Verified 04/15/17 20:29) Shellfish * [Shellfish] Allergy (Unknown, Verified 04/15/17 20:29) Past Medical History - Social History Smoking Status: Current Every Day Smoker Family History: COPD, Hypertension Patient has suicidal ideation: No Patient has homicidal ideation: No - Past Medical History Cardiac Medical History: Reports: Hx Hypercholesterolemia, Hx Hypertension Pulmonary Medical History: Reports: Hx COPD Renal/ Medical History: Denies: Hx Peritoneal Dialysis Psychiatric Medical History: Reports: Hx Bipolar Disorder, Hx Depression Past Surgical History: Reports: Hx Hysterectomy, Hx Orthopedic Surgery - carpal tunnel release, Hx Tonsillectomy, Hx Tubal Ligation - Immunizations Immunizations up to date: Yes Hx Diphtheria, Pertussis, Tetanus Vaccination: No Hx Pneumococcal Vaccination: 07/04/00 Review of Systems - Review of Systems -: Yes All other systems reviewed and negative Physical Exam - Vital signs Vitals: Temp Pulse Resp BP Pulse Ox 98.2 F 65 18 120/80 96 11/26/17 22:57 11/26/17 22:57 11/26/17 22:57 11/26/17 22:57 11/26/17 22:57 - Notes Notes: GENERAL: alert, cooperative, nontoxic, no distress. HEAD: normocephalic, atraumatic EYES: conjunctiva pink without discharge, no external redness or swelling. EARS: no external swelling, no external redness, no mastoid redness, swelling, tenderness. Small foreign body noted within the left ear canal. TMs pearly correa, no redness, no bulging, normal landmarks, no perforation. NOSE: atraumatic, no external swelling. clear rhinorrhea noted. MOUTH/THROAT: mucous membranes moist and pink, posterior pharynx without erythema, swelling, exudate. No trismus or drooling. NECK: soft, supple, full range of motion, no meningismus. CHEST: no distress, lungs clear and equal throughout. No wheezing, rales, rhonchi. CARDIAC: regular rate and rhythm, no murmur, normal capillary refill, normal pulses. No peripheral edema noted. BACK: full range of motion, no CVA tenderness. EXTREMITIES: full range of motion of all extremities. No redness, no swelling. NEURO: alert and oriented A&O3, no focal deficits, full range of motion of all extremities. PYSCH: appropriate mood, affect. Patient is cooperative. SKIN: pink, warm, dry, no rash. Course - Re-evaluation Re-evalutation: 11/27/17 00:17 Patient is nontoxic appearing with stable vitals. She is here with complaints of foreign body in the left ear canal. She has the ear piece from her hearing aid stuck in her left ear canal. I was able to remove it using a pair of alligator forceps. TM is intact. No drainage. Patient tolerated procedure well with no immediate consultations. Patient will be discharged home with instructions to follow-up for ear pain, drainage, redness, swelling, any further concerns. The patient's emergency department workup and current diagnosis were explained to the patient and or family. Follow-up instructions were provided. Medications if prescribed were discussed. Instructions for when to return to the emergency department including specific worrisome symptoms were discussed with the patient and/or family. - Vital Signs Vital signs: Temp Pulse Resp BP Pulse Ox 98.2 F 65 18 120/80 96 11/26/17 22:57 11/26/17 22:57 11/26/17 22:57 11/26/17 22:57 11/26/17 22:57 Procedures - Additional Procedures Foreign body removal Notes: 11/27/17 00:18 Hearing aid tip removed from the left ear canal using alligator forceps. Patient tolerated procedure well. TM unremarkable after removal but no perforation. Patient tolerated procedure well with no immediate complications. Discharge - Discharge Clinical Impression: Acute foreign body of left ear canal Qualifiers: Encounter type: initial encounter Qualified Code(s): T16.2XXA - Foreign body in left ear, initial encounter Condition: Stable Disposition: HOME, SELF-CARE Instructions: Foreign Object in the Ear ([facility]) Additional Instructions: Follow-up for increased pain, fever, redness, drainage, swelling, any further concerns. Forms: Smoking Cessation Education Referrals: [facility] [Provider Group] - Follow up as needed
== END 2017-11-27 00:39 | disposition home or self-care (01) ==
LOC: ER 22:48
DX: T16.2XXA Foreign body in left ear, initial encounter (principal); X58.XXXA Exposure to other specified factors, initial encounter; J44.9 Chronic obstructive pulmonary disease, unspecified; I10 Essential (primary) hypertension; F17.200 Nicotine dependence, unspecified, uncomplicated; Z88.1 Allergy status to other antibiotic agents; Z91.013 Allergy to seafood
CPT/HCPCS: 99282

== ENCOUNTER 2018-01-21 18:07 | Emergency (ER) | payer SELFPAY ==
[2018-01-21] MEDS ORDERED: NORMAL SALINE 1000 ML 1,000 ML IV ONE (19:49)
--- NOTE | 2018-01-21 19:50 | ER Document Report ---
ED Medical Screen (RME) - General Chief Complaint: Chest Pain Stated Complaint: CHEST PAIN/DIZZINESS TRAVEL OUTSIDE OF THE [place] IN LAST 30 DAYS: No - HPI Notes: 01/21/18 19:49 Patient with multiple complaints shortness of breath cough nausea vomiting dizziness intermittent chest pain possible constipation ongoing for "by the patient many days". Patient continues to smoke despite diagnosis of COPD. - Related Data Allergies/Adverse Reactions: iodine [Iodine] Allergy (Unknown, Verified 01/21/18 18:08) levofloxacin [From Levaquin] Allergy (Unknown, Verified 01/21/18 18:08) Shellfish * [Shellfish] Allergy (Unknown, Verified 01/21/18 18:08) Past Medical History - Past Medical History Cardiac Medical History: Reports: Hx Hypercholesterolemia, Hx Hypertension Pulmonary Medical History: Reports: Hx COPD Renal/ Medical History: Denies: Hx Peritoneal Dialysis Psychiatric Medical History: Reports: Hx Bipolar Disorder, Hx Depression Past Surgical History: Reports: Hx Hysterectomy, Hx Orthopedic Surgery - carpal tunnel release, Hx Tonsillectomy, Hx Tubal Ligation - Immunizations Immunizations up to date: Yes Hx Diphtheria, Pertussis, Tetanus Vaccination: No History of Influenza Vaccine for 04/2017 - 09/2017 Season: No Review of Systems - Review of Systems Constitutional: Other - Constipation dizziness nausea vomiting chest pain Physical Exam - Vital signs Vitals: Temp Pulse Resp BP Pulse Ox 98.7 F 86 18 101/48 L 98 01/21/18 18:40 01/21/18 18:40 01/21/18 18:40 01/21/18 18:40 01/21/18 18:40 Interpretation: Normal - General General appearance: Appears well, Alert - HEENT Head: Normocephalic, Atraumatic Eyes: Normal Pupils: PERRL - Respiratory Respiratory status: No respiratory distress Chest status: Nontender Breath sounds: Normal Chest palpation: Normal - Cardiovascular Rhythm: Regular Heart sounds: Normal auscultation Murmur: No - Abdominal Inspection: Normal Distension: No distension Bowel sounds: Normal Tenderness: Nontender Organomegaly: No organomegaly - Back Back: Normal, Nontender - Extremities General upper extremity: Normal inspection, Nontender, Normal color, Normal ROM , Normal temperature General lower extremity: Normal inspection, Nontender, Normal color, Normal ROM , Normal temperature, Normal weight bearing. No: Karen's sign - Neurological Neuro grossly intact: Yes Cognition: Normal Orientation: AAOx4 [place] Coma Scale Eye Opening: Spontaneous [place] Coma Scale Verbal: Oriented Miri Coma Scale Motor: Obeys Commands [place] Coma Scale Total: 15 Speech: Normal Motor strength normal: LUE, RUE, LLE, RLE Sensory: Normal - Psychological Associated symptoms: Normal affect, Normal mood - Skin Skin Temperature: Warm Skin Moisture: Dry Skin Color: Normal Course - Vital Signs Vital signs: Temp Pulse Resp BP Pulse Ox 98.7 F 86 18 101/48 L 98 01/21/18 18:40 01/21/18 18:40 01/21/18 18:40 01/21/18 18:40 01/21/18 18:40
[2018-01-21 20:28] LABS: ABSOLUTE BASOPHILS # (AUTO) 0.1 10^3/uL (0.0-0.2); ABSOLUTE EOSINOPHILS # (AUTO) 0.2 10^3/uL (0.0-0.6); ABSOLUTE LYMPHOCYTES (AUTO) 3.1 10^3/uL (0.5-4.7); ABSOLUTE MONOCYTES (AUTO) 0.8 10^3/uL (0.1-1.4); ABSOLUTE NEUT (AUTO) 7.9 10^3/uL (1.7-8.2); HEMATOCRIT 38.5 % (36.0-47.0); HEMOGLOBIN 13.2 g/dL (12.0-15.5); LYMPHOCYTES % (AUTO) 25.3 % (13-45); MEAN CORPUSCULAR HEMOGLOBIN 30.9 pg (27.0-33.4); MEAN CORPUSCULAR HGB CONC 34.2 g/dL (32.0-36.0); MEAN CORPUSCULAR VOLUME 90 fl (80-97); MONOCYTES % (AUTO) 6.7 % (3-13); PLATELET COUNT 266 10^3/uL (150-450); RED BLOOD COUNT 4.26 10^6/uL (3.72-5.28); TOTAL CELLS COUNTED % (AUTO) 100 %; WHITE BLOOD COUNT 12.1 10^3/uL (4.0-10.5)
[2018-01-21 20:35] LABS: INTERNATIONAL RATION (INR) 0.85
[2018-01-21 20:52] LABS: ALANINE AMINOTRANSFERASE 26 U/L (9-52); ALBUMIN 4.5 g/dL (3.5-5.0); ALKALINE PHOSPHATASE 88 U/L (38-126); ANION GAP 15 (5-19); ASPARTATE AMINO TRANSFERASE 33 U/L (14-36); BILIRUBIN,DIRECT 0.3 mg/dL (0.0-0.4); BILIRUBIN,TOTAL 0.4 mg/dL (0.2-1.3); BLOOD UREA NITROGEN 15 mg/dL (7-20); CALCIUM 11.5 mg/dL (8.4-10.2); CARBON DIOXIDE 29 mmol/L (22-30); CHLORIDE 102 mmol/L (98-107); CREATINE KINASE 218 U/L (30-135); GLUCOSE 93 mg/dL (75-110); POTASSIUM 3.6 mmol/L (3.6-5.0); SODIUM 145.5 mmol/L (137-145); TOTAL PROTEIN 7.6 g/dL (6.3-8.2)
[2018-01-21 21:04] LABS: CREATINE KINASE MB 2.05 ng/mL (<4.55)
[2018-01-21 21:05] LABS: TROPONIN I < 0.012 ng/mL
--- NOTE | 2018-01-21 21:40 | RADIOLOGY REPORT (SQ) ---
EXAM DESCRIPTION: ACUTE ABDOMEN SERIES COMPLETED DATE/TIME: 01/21/2018 8:36 pm REASON FOR STUDY: sob constipation COMPARISON: Abdominal series 03/25/2016. Chest x-ray 09/28/2017. NUMBER OF VIEWS: Three views. TECHNIQUE: Frontal chest, supine abdomen and upright/decubitus abdomen radiographic images acquired. LIMITATIONS: None. FINDINGS: CHEST: No consolidation, pleural effusion or pneumothorax. FREE AIR: None. BOWEL GAS PATTERN: Nonobstructive pattern. No dilated loops or air fluid levels. CALCIFICATIONS: No suspicious calcifications. HARDWARE: None in the abdomen. SOFT TISSUES: No gross mass or suggestion of organomegaly. BONES: Degenerative changes at the spine. IMPRESSION: Nonobstructive bowel gas pattern. No acute radiographic finding at the chest. TECHNICAL DOCUMENTATION: JOB ID: [id number] 2010 [employer]- All Rights Reserved Reading location - IP/workstation name: [email or web address]
--- NOTE | 2018-01-21 22:01 | EKG REPORT ---
SEVERITY:- BORDERLINE ECG - SINUS RHYTHM BORDERLINE INFERIOR Q WAVES : Confirmed by: Jerad Sen 21-Jan-2018 22:01:14
--- NOTE | 2018-01-21 23:17 | ER Document Report ---
ED General - General Chief Complaint: Chest Pain Stated Complaint: CHEST PAIN/DIZZINESS Time Seen by Provider: 01/21/18 20:02 Notes: Patient is a 62-year-old female with a past medical history of COPD, actively smoking, hypertension, hyperlipidemia who presents with multiple complaints. The patient is a somewhat tangential historian and is somewhat difficult to assess what her exact complaint that brought her to the emergency department is. However it appears that the patient is intermittently having episodes in which she becomes lightheaded short of breath and then develops chest pressure. It sounds like this has been ongoing from with the patient describes at least for the past several months. It apparently has been more pronounced over the past several weeks. She has not seen her general doctor regarding her concerns. She notes that she recently restarted her blood pressure medication which is a lisinopril hydrochlorthiazide combo pill and that her symptoms may have been become worse since that time. She denies any symptoms at the time of my assessment. She denies any apparent improving or worsening factor. She denies any vomiting, loss of consciousness, focal weakness or numbness, fever or constitutional symptoms. TRAVEL OUTSIDE OF THE [place] IN LAST 30 DAYS: No - Related Data Allergies/Adverse Reactions: iodine [Iodine] Allergy (Unknown, Verified 01/21/18 18:08) levofloxacin [From Levaquin] Allergy (Unknown, Verified 01/21/18 18:08) Shellfish * [Shellfish] Allergy (Unknown, Verified 01/21/18 18:08) Past Medical History - General Information source: Patient - Social History Smoking Status: Current Every Day Smoker Frequency of alcohol use: None Drug Abuse: None Lives with: Family Family History: COPD, Hypertension Patient has suicidal ideation: No Patient has homicidal ideation: No - Past Medical History Cardiac Medical History: Reports: Hx Hypercholesterolemia, Hx Hypertension Pulmonary Medical History: Reports: Hx COPD Renal/ Medical History: Denies: Hx Peritoneal Dialysis Psychiatric Medical History: Reports: Hx Bipolar Disorder, Hx Depression Past Surgical History: Reports: Hx Hysterectomy, Hx Orthopedic Surgery - carpal tunnel release, Hx Tonsillectomy, Hx Tubal Ligation - Immunizations Immunizations up to date: Yes Hx Diphtheria, Pertussis, Tetanus Vaccination: No Hx Pneumococcal Vaccination: 07/04/00 Review of Systems - Review of Systems Notes: Constitutional: Negative for fever. HENT: Negative for sore throat. Eyes: Negative for visual changes. Cardiovascular: Positive e for chest pain. Respiratory: Positive for shortness of breath. Gastrointestinal: Negative for abdominal pain, vomiting or diarrhea. Genitourinary: Negative for dysuria. Musculoskeletal: Negative for back pain. Skin: Negative for rash. Neurological: Negative for headaches, weakness or numbness. 10 point ROS negative except as marked above and in HPI. Physical Exam - Vital signs Vitals: Temp Pulse Resp BP Pulse Ox 98.7 F 86 18 101/48 L 98 01/21/18 18:40 01/21/18 18:40 01/21/18 18:40 01/21/18 18:40 01/21/18 18:40 Interpretation: Normal Notes: PHYSICAL EXAMINATION: GENERAL: Well-appearing, well-nourished and in no acute distress. HEAD: Atraumatic, normocephalic. EYES: Pupils equal round and reactive to light, extraocular movements intact, sclera anicteric, conjunctiva are normal. ENT: nares patent, oropharynx clear without exudates. Moist mucous membranes. NECK: Normal range of motion, supple without lymphadenopathy LUNGS: Breath sounds clear to auscultation bilaterally and equal. No wheezes rales or rhonchi. HEART: Regular rate and rhythm without murmurs ABDOMEN: Soft, nontender, normoactive bowel sounds. No guarding, no rebound. No masses appreciated. EXTREMITIES: Normal range of motion, no pitting or edema. No cyanosis. NEUROLOGICAL: No focal neurological deficits. Moves all extremities spontaneously and on command. PSYCH: Normal mood, normal affect. SKIN: Warm, Dry, normal turgor, no rashes or lesions noted. Course - Re-evaluation Re-evalutation: 01/21/18 23:14 Patient presents with multiple symptoms over the past several weeks which ultimately seem to be most consistent with presyncope likely secondary to prolonged dehydration. Patient's laboratories are unremarkable with exception of findings of prerenal azotemia which was not present on laboratories in November of this year. The patient denies any complaints at the time of my assessment, her main complaint is that she has episodes in which becomes quite lightheaded and almost passes out. She notes thereafter she does develop some chest discomfort that rapidly resolved. Her EKG is unremarkable. Chest x-ray and abdominal x-rays unremarkable. Her troponin is normal. She has received 1 L of IV fluids. Patient has also restarted her lisinopril hydrochlorothiazide combination which she had been off of for approximately 1 month. This could also be contributing to her abnormal renal functions as well as her symptoms as he did start shortly after she restarted these medications. I have instructed her to half the dose of her lisinopril hydrochlorothiazide as her blood pressure is in the low 110s here in the emergency department. Clinical history and exam are not consistent with an aortic dissection, acute CO, pulmonary embolus or any alternatively threatening pathology. At this time will discharge with return precautions and follow-up recommendations. Verbal discharge instructions given a the bedside and opportunity for questions given. Medication warnings reviewed. Patient is in agreement with this plan and has verbalized understanding of return precautions and the need for primary care follow-up in the next 24-72 hours. - Vital Signs Vital signs: Temp Pulse Resp BP Pulse Ox 98.7 F 78 16 134/56 H 98 01/21/18 18:40 01/21/18 23:45 01/21/18 23:45 01/21/18 23:45 01/21/18 23:45 - Laboratory Result Diagrams: 01/21/18 20:14 01/21/18 20:14 Laboratory results interpreted by me: 01/21/18 01/21/18 20:14 20:14 WBC 12.1 H Sodium 145.5 H Creatinine 1.50 H Est GFR ( Amer) 43 L Est GFR (Non-Af Amer) 35 L Calcium 11.5 H Creatine Kinase 218 H - Diagnostic Test Radiology reviewed: Image reviewed, Reports reviewed Radiology results interpreted by me: 01/21/18 23:15 Acute abdominal series: No acute or pneumothorax, nonobstructive bowel gas pattern. - EKG Interpretation by Me Additional EKG results interpreted by me: 01/21/18 23:15 Sinus rhythm. Rate 76. No ST elevations or depressions. QTC is 446. Discharge - Discharge Clinical Impression: Chest discomfort, Near syncope, Lightheadedness, Prerenal azotemia, Dehydration Condition: Good Disposition: HOME, SELF-CARE Additional Instructions: You were seen today after an episode of episodes of becoming lightheaded and almost passing out. Your EKG here is normal. At this time, we do not feel that your episode of passing out was from any life-threatening cause. Your kidney functions are slightly abnormal today consistent with being dehydrated. Please cut your lisinopril/hydrochlorothiazide pill in half and take half of your normal dose for the next 3 days. Please check your blood pressure each morning and if you note that your blood pressure is normal prior to taking the medication please do not take the medication at all. Please drink plenty of fluids over the next several days. Return to emergency department if you have any further episodes of syncope, headache, weakness, numbness, chest pain, or shortness of breath. Please follow up closely with your primary care physician within the next 24-48 hours. Referrals: CAROLINA DRAPER MD [Primary Care Provider] - Follow up as needed
[2018-01-21 23:45] VITALS: BP 134/56
== END 2018-01-21 23:44 | disposition home or self-care (01) ==
LOC: ER 18:07
DX: R07.9 Chest pain, unspecified (principal); R55 Syncope and collapse; R42 Dizziness and giddiness; E86.0 Dehydration; R79.89 Other specified abnormal findings of blood chemistry; J44.9 Chronic obstructive pulmonary disease, unspecified; F17.200 Nicotine dependence, unspecified, uncomplicated; I10 Essential (primary) hypertension; E78.00 Pure hypercholesterolemia, unspecified; Z90.710 Acquired absence of both cervix and uterus
CPT/HCPCS: 93005; 99285; 36415; 82553; 82550; 85025; 85610; 80053; 84484; 74022; 93010; J7030

== ENCOUNTER 2018-03-29 12:43 | Emergency (ER) | payer OTHER ==
[2018-03-29] MEDS ORDERED: ONDANSETRON HCL INJ/PF 4 MG/2 ML SDV IV ONE (13:25)
[2018-03-29] MEDS ORDERED: NORMAL SALINE 1000 ML 1,000 ML IV ONE (13:25)
[2018-03-29] MEDS ORDERED: MORPHINE SULFATE 10 MG/ML INJ IV ONE ×2 (13:25→15:58)
--- NOTE | 2018-03-29 13:26 | ER Document Report ---
ED General - General Chief Complaint: Abdominal Pain Stated Complaint: ABDOMINAL PAIN Time Seen by Provider: 03/29/18 13:17 Mode of Arrival: Ambulatory Information source: Patient, [facility] Records Notes: 63-year-old female with hypothyroidism, hyperlipidemia, hypertension, COPD, GERD presents with complaint of right flank and right lower quadrant pain that started 5 days prior to arrival. Patient states the pain is intermittent, stabbing and associated with nausea. Patient denies any vomiting. Her last bowel movement was today. She denies any black or bloody stool. Patient denies dysuria, vaginal discharge. She is not sexually active. She does report a history of hematuria. TRAVEL OUTSIDE OF THE [place] IN LAST 30 DAYS: No - HPI Onset: Last week Onset/Duration: Gradual, Persistent, Worse Quality of pain: Stabbing Severity: Moderate Associated symptoms: Nausea. denies: Chest pain, Fever Exacerbated by: Denies Relieved by: Denies Similar symptoms previously: No Recently seen / treated by doctor: No - Related Data Allergies/Adverse Reactions: levofloxacin [From Levaquin] Allergy (Unknown, Verified 03/29/18 12:43) Shellfish * [Shellfish] Allergy (Unknown, Verified 03/29/18 12:43) Past Medical History - General Information source: Patient - Social History Smoking Status: Current Every Day Smoker Cigarette use (# per day): Yes - 15-20 Smoking Education Provided: Yes - Smoking cessation counseling was provided for 4 minutes at the bedside Frequency of alcohol use: None Drug Abuse: None Lives with: Family Family History: COPD, Hypertension Patient has suicidal ideation: No Patient has homicidal ideation: No - Past Medical History Cardiac Medical History: Reports: Hx Hypercholesterolemia, Hx Hypertension Pulmonary Medical History: Reports: Hx COPD Renal/ Medical History: Denies: Hx Peritoneal Dialysis Psychiatric Medical History: Reports: Hx Bipolar Disorder, Hx Depression Past Surgical History: Reports: Hx Hysterectomy, Hx Orthopedic Surgery - carpal tunnel release, Hx Tonsillectomy, Hx Tubal Ligation - Immunizations Immunizations up to date: Yes Hx Diphtheria, Pertussis, Tetanus Vaccination: No Hx Pneumococcal Vaccination: 07/04/00 Review of Systems - Review of Systems Notes: REVIEW OF SYSTEMS: CONSTITUTIONAL : Denies fever, chills, or sweats. Denies recent illness. Denies weight loss, recent hospitalizations. EENT: Denies visual changes, eye pain. Denies sore throat, oral lesions, difficulty swallowing. CARDIOVASCULAR: Denies chest pain. Denies palpitations. Denies lower extremity edema. RESPIRATORY: Denies cough. Denies shortness of breath, wheezing. GASTROINTESTINAL: Denies abdominal distention. Denies vomiting, or diarrhea. Denies blood in vomitus, stools, or per rectum. Denies black, tarry stools. Denies constipation. GENITOURINARY: Denies difficulty urinating, painful urination, frequency, blood in urine, or vaginal discharge. MUSCULOSKELETAL: Denies neck pain or stiffness. Denies joint pain or swelling. SKIN: Denies rash, lesions or sores. HEMATOLOGIC : Denies easy bruising or bleeding. LYMPHATIC: Denies swollen glands. NEUROLOGICAL: Denies confusion or altered mental status. Denies loss of consciousness. Denies dizziness or lightheadedness. Denies headache. Denies weakness or paralysis. Denies problems difficulty with ambulation, slurred speech. Denies sensory loss, numbness, or tingling. Denies seizures. PSYCHIATRIC: Denies anxiety or stress. Denies depression, suicidal ideation, or homicidal ideation. Denies visual or auditory hallucinations. Physical Exam - Vital signs Vitals: Temp Pulse Resp BP Pulse Ox 98.6 F 63 14 131/63 H 97 03/29/18 12:47 03/29/18 12:47 03/29/18 12:47 03/29/18 12:47 03/29/18 12:47 Interpretation: No: Hypoxic, Febrile - Notes Notes: PHYSICAL EXAMINATION: GENERAL: Well-appearing, well-nourished and in no acute distress. HEAD: Atraumatic, normocephalic. EYES: Pupils equal round and reactive to light, extraocular movements intact, conjunctiva are normal. ENT: Nares patent, oropharynx clear without exudates. Moist mucous membranes. NECK: Normal range of motion, supple without lymphadenopathy LUNGS: Breath sounds clear to auscultation bilaterally and equal. No wheezes rales or rhonchi. HEART: Regular rate and rhythm without murmurs ABDOMEN: Right lower quadrant tenderness with palpation. no guarding, no rebound. No masses appreciated. No CVA tenderness Female : deferred Musculoskeletal: Normal range of motion, no pitting or edema. No cyanosis. Low back pain not reproducible. Patient ambulates without difficulty. She can go up on her toes up on her heels. NEUROLOGICAL: Cranial nerves grossly intact. Normal speech, normal gait. Normal sensory, motor exams PSYCH: Normal mood, normal affect. SKIN: Warm, Dry, normal turgor, no rashes or lesions noted. Course - Re-evaluation Re-evalutation: 03/29/18 17:30 Laboratory 03/29/18 03/29/18 03/29/18 14:04 14:04 14:04 WBC 7.8 RBC 4.20 Hgb 13.0 Hct 37.3 MCV 89 MCH 30.9 MCHC 34.7 RDW 13.1 Plt Count 252 Seg Neutrophils % 46.7 Lymphocytes % 40.1 Monocytes % 7.8 Eosinophils % 4.3 Basophils % 1.1 Absolute Neutrophils 3.6 Absolute Lymphocytes 3.1 Absolute Monocytes 0.6 Absolute Eosinophils 0.3 Absolute Basophils 0.1 Sodium 141.9 Potassium 4.3 Chloride 105 Carbon Dioxide 29 Anion Gap 8 BUN 10 Creatinine 0.80 Est GFR ( Amer) > 60 Est GFR (Non-Af Amer) > 60 Glucose 88 Calcium 11.6 H Total Bilirubin 0.3 Direct Bilirubin 0.2 Neonat Total Bilirubin Not Reportable Neonat Direct Bilirubin Not Reportable Neonat Indirect Bili Not Reportable AST 21 ALT 23 Alkaline Phosphatase 78 Total Protein 6.8 Albumin 4.1 Lipase 163.8 Urine Color YELLOW Urine Appearance CLEAR Urine pH 7.0 Ur Specific [place] 1.006 Urine Protein NEGATIVE Urine Glucose (UA) NEGATIVE Urine Ketones NEGATIVE Urine Blood SMALL H Urine Nitrite NEGATIVE Urine Bilirubin NEGATIVE Urine Urobilinogen NEGATIVE Ur Leukocyte Esterase NEGATIVE Urine WBC (Auto) 1 Urine RBC (Auto) 1 Squamous Epi Cells Auto 3 Urine Mucus (Auto) RARE Urine Ascorbic Acid NEGATIVE Abdomen/Pelvis CT 03/29/18 13:25 IMPRESSION: NO SIGNIFICANT OR ACUTE FINDING IN THE ABDOMEN OR PELVIS ON CT SCAN WITH IV CONTRAST. Presentation of a well appearing patient complaining of right-sided back pain, right lower quadrant abdominal pain. No rapid progression of symptoms, systemic symptoms including fevers, chills, weight loss, history of recent bacterial infection, bilateral symptoms, numbness, weakness, difficulty walking, urinary retention or bowel incontinence, personal history of cancer, immunosuppression, diabetes, known AAA, or history of IV drug use. Exam is without point tenderness over vertebral bodies, pulsatile abdominal mass, and patient has symmetric and intact lower extremity strength, sensation, and reflexes without clonus. 2+ symmetric medial malleolar and dorsalis pedis pulses. Patient provided the opportunity to ask questions, and express concerns. Discharge instructions discussed. Patient is agreeable with discharge home. Return indications explained and discussed with the patient who displays understanding. Patient encouraged to return to the emergency department immediately with any concerns. Results were discussed with the patient at this point, after careful consideration I feel that that patient can be discharged from the emergency department, the patient was educated treatments and reasons to return to the emergency department based on their presumed diagnosis as noted above, they were advised to followup with a primary care physician in 2-3 days. Patient was agreeable to plan of care. Patient provided a copy of her CAT scan report to show her primary care physician. Dictation on this chart was performed using voice recognition software and may result in unintended grammatical, spelling, syntax or errors. Based on history and physical, I have a very low suspicion of a concerning etiology of pain including epidural compression syndrome, spinal infection, malignancy, abdominal aortic aneurysm, renal colic, urolithiasis, appendicitis, cholecystitis, ankylosing spondylitis, or other intra-abdominal process. Plan to manage conservatively with outpatient analgesia, analgesia, and physical therapy. - Acetaminophen 650 q 4 + ibuprofen 600 q 6 - Continue normal daily activities as tolerated by pain - Provide with standard musculoskeletal back pain exercise instructions - Instruct to follow up with primary care provider if symptoms not improving - Provide careful return precautions and concerning symptoms to watch for. - Vital Signs Vital signs: Temp Pulse Resp BP Pulse Ox 98.4 F 64 16 123/56 L 98 03/29/18 16:13 03/29/18 16:13 03/29/18 16:13 03/29/18 16:13 03/29/18 16:13 - Laboratory Result Diagrams: 03/29/18 14:04 03/29/18 14:04 Laboratory results interpreted by me: 03/29/18 03/29/18 14:04 14:04 Calcium 11.6 H Urine Blood SMALL H - Diagnostic Test Radiology reviewed: Image reviewed, Reports reviewed Discharge - Discharge Clinical Impression: RLQ abdominal pain Low back pain Qualifiers: Chronicity: acute Back pain laterality: right Sciatica presence: without sciatica Qualified Code(s): M54.5 - Low back pain Hematuria Qualifiers: Hematuria type: asymptomatic microscopic Qualified Code(s): R31.21 - Asymptomatic microscopic hematuria Condition: Good Disposition: HOME, SELF-CARE Instructions: Abdominal Pain ([facility]), Hematuria ([facility]), Low Back Pain ([facility]), Observation for Appendicitis ([facility]) Additional Instructions: You have been seen in the Emergency Department (ED) for abdominal pain. Your evaluation did not identify a clear cause of your symptoms but was generally reassuring. Please follow up with your doctor as soon as possible regarding today's emergent visit and the symptoms that are bothering you. Return to the ED if your abdominal pain worsens or fails to improve, you develop bloody vomiting, bloody diarrhea, you are unable to tolerate fluids due to vomiting, fever greater than 101, or other symptoms that concern you. Most prescribed medications have multiple side effects. The safest thing to do is when filling your prescription please speak to your pharmacist regarding possible interactions with your normal home medications and over the counter medications such as Ibuprofen, Tylenol, Benadryl.. If you experience any symptoms that cause you discomfort or concern you should discontinue the medication immediately and return to the emergency room or call your primary care physician. Your CAT scan did not show any evidence of appendicitis, cholecystitis, enlargement of your aorta. Your urinalysis did not show evidence of infection. Please return to the emergency department if abdominal pain worsens. Prescriptions: Hydrocodone/Acetaminophen [[place] 5-325 mg Tablet] 1 tab PO Q6H #10 tablet Ondansetron [Zofran Odt 4 mg Tablet] 1 tab PO Q4H PRN #8 tab.rapdis PRN Reason: For Nausea/Vomiting Forms: Smoking Cessation Education Referrals: CAROLINA DRAPER MD [Primary Care Provider] - Follow up as needed
[2018-03-29 14:27] LABS: APPEARANCE,URINE CLEAR; BILIRUBIN,URINE NEGATIVE (NEGATIVE); COLOR,URINE YELLOW; GLUCOSE, URINE NEGATIVE (NEGATIVE); KETONES,URINE NEGATIVE (NEGATIVE); LEUKOCYTE ESTERASE,URINE NEGATIVE (NEGATIVE); NITRITE,URINE NEGATIVE (NEGATIVE); PROTEIN,URINE NEGATIVE (NEGATIVE); URINE SPECIFIC GRAVITY 1.006; UROBILINOGEN,URINE NEGATIVE mg/dL (<2.0)
[2018-03-29 14:32] LABS: ABSOLUTE BASOPHILS # (AUTO) 0.1 10^3/uL (0.0-0.2); ABSOLUTE EOSINOPHILS # (AUTO) 0.3 10^3/uL (0.0-0.6); ABSOLUTE LYMPHOCYTES (AUTO) 3.1 10^3/uL (0.5-4.7); ABSOLUTE MONOCYTES (AUTO) 0.6 10^3/uL (0.1-1.4); ABSOLUTE NEUT (AUTO) 3.6 10^3/uL (1.7-8.2); BASOPHILS % (AUTO) 1.1 % (0-2); EOSINOPHILS % (AUTO) 4.3 % (0-6); HEMATOCRIT 37.3 % (36.0-47.0); LYMPHOCYTES % (AUTO) 40.1 % (13-45); MEAN CORPUSCULAR HEMOGLOBIN 30.9 pg (27.0-33.4); MEAN CORPUSCULAR HGB CONC 34.7 g/dL (32.0-36.0); MEAN CORPUSCULAR VOLUME 89 fl (80-97); MONOCYTES % (AUTO) 7.8 % (3-13); PLATELET COUNT 252 10^3/uL (150-450); RED CELL DISTRIBUTION WIDTH 13.1 % (11.5-14.0); SEGMENTED NEUTROPHILS % (AUTO) 46.7 % (42-78); TOTAL CELLS COUNTED % (AUTO) 100 %; WHITE BLOOD COUNT 7.8 10^3/uL (4.0-10.5)
[2018-03-29 15:03] LABS: ALANINE AMINOTRANSFERASE 23 U/L (9-52); ALBUMIN 4.1 g/dL (3.5-5.0); ALKALINE PHOSPHATASE 78 U/L (38-126); ANION GAP 8 (5-19); ASPARTATE AMINO TRANSFERASE 21 U/L (14-36); BILIRUBIN,DIRECT 0.2 mg/dL (0.0-0.4); BILIRUBIN,TOTAL 0.3 mg/dL (0.2-1.3); BLOOD UREA NITROGEN 10 mg/dL (7-20); CALCIUM 11.6 mg/dL (8.4-10.2); CARBON DIOXIDE 29 mmol/L (22-30); CHLORIDE 105 mmol/L (98-107); GLUCOSE 88 mg/dL (75-110); LIPASE 163.8 U/L (23-300); POTASSIUM 4.3 mmol/L (3.6-5.0); SODIUM 141.9 mmol/L (137-145); TOTAL PROTEIN 6.8 g/dL (6.3-8.2)
--- NOTE | 2018-03-29 15:48 | RADIOLOGY REPORT (SQ) ---
EXAM DESCRIPTION: CT ABD/PELVIS WITH IV ONLY COMPLETED DATE/TIME: 03/29/2018 3:36 pm REASON FOR STUDY: Right lower quadrant abdominal pain COMPARISON: None. TECHNIQUE: CT scan of the abdomen and pelvis performed using helical scanning technique with dynamic intravenous contrast injection. No oral contrast. Images reviewed with lung, soft tissue, and bone windows. Reconstructed coronal and sagittal MPR images reviewed. Delayed images for evaluation of the urinary system also acquired. All images stored on PACS. All CT scanners at this facility use dose modulation, iterative reconstruction, and/or weight based d osing when appropriate to reduce radiation dose to as low as reasonably achievable (ALARA). [facility]: Dose Right [facility]: CareDose [facility]: Dose Right [facility]: Teradose 4D [facility]: [employer] CONTRAST TYPE AND DOSE: contrast/concentration: Isovue 350.00 mg/ml; Total Contrast Delivered: 76.0 ml; Total Saline Delivered: 67.0 ml RENAL FUNCTION: BUN 10 creatinine 0.8 RADIATION DOSE: CT Rad equipment meets quality standard of care and radiation dose reduction techniq ues were employed. CTDIvol: 5.6 - 7.8 mGy. DLP: 712 mGy-cm.. LIMITATIONS: None. FINDINGS: LOWER CHEST: No significant findings. No nodules or infiltrates. LIVER: Small hepatic cyst. No masses. SPLEEN: Normal size. No focal lesions. PANCREAS: No masses. No significant calcifications. No adjacent inflammation or peripancreatic fluid collections. Pancreatic duct not dilated. GALLBLADDER: No identified stones by CT criteria. No inflammatory changes to suggest cholecystitis. ADRENAL GLANDS: No significant masses or asymmetry. RIGHT KIDNEY AND URETER: No solid masses. No significant calcifications. No hydronephrosis or hyd roureter. LEFT KIDNEY AND URETER: No solid masses. No significant calcifications. No hydronephrosis or hydr oureter. AORTA AND VESSELS: No aneurysm. No dissection. Renal arteries, SMA, celiac without stenosis. RETROPERITONEUM: No retroperitoneal adenopathy, hemorrhage or masses. BOWEL AND PERITONEAL CAVITY: No masses or inflammatory changes. No free fluid or peritoneal masses. APPENDIX: Normal. PELVIS: No mass. No free fluid. Normal bladder. ABDOMINAL WALL: No masses. No hernias. BONES: No significant or acute findings. OTHER: No other significant finding. IMPRESSION: NO SIGNIFICANT OR ACUTE FINDING IN THE ABDOMEN OR PELVIS ON CT SCAN WITH IV CONTRAST. TECHNICAL DOCUMENTATION: JOB ID: [id number] Quality ID # [id number]: Final reports with documentation of one or more dose reduction techniques (e.g., Au tomated exposure control, adjustment of the mA and/or kV according to patient size, use of iterative reconstruction technique) 2010 [employer]- All Rights Reserved Reading location - IP/workstation name: [email or web address]
[2018-03-29 16:17] VITALS: BP 123/56
== END 2018-03-29 16:13 | disposition home or self-care (01) ==
LOC: ER 12:43
DX: R10.31 Right lower quadrant pain (principal); M54.5 Low back pain; R31.21 Asymptomatic microscopic hematuria; F17.210 Nicotine dependence, cigarettes, uncomplicated; E03.9 Hypothyroidism, unspecified; I10 Essential (primary) hypertension; J44.9 Chronic obstructive pulmonary disease, unspecified; K21.9 Gastro-esophageal reflux disease without esophagitis
CPT/HCPCS: 96376; 99406; 99284; 96374; 96375; 36415; 83690; 85025; 80053; 81001; 74177; J2270; J2405

== ENCOUNTER 2018-04-17 15:26 | Emergency (ER) | payer OTHER ==
[2018-04-17] MEDS ORDERED: DEXAMETHASONE SOD PHOS INJ 10 MG/1 ML VIAL IM ONE (16:11)
[2018-04-17] MEDS ORDERED: KETOROLAC TROMETHAMINE 60 MG/2 ML SDV IM ONE (16:11)
--- NOTE | 2018-04-17 17:05 | RADIOLOGY REPORT (SQ) ---
EXAM DESCRIPTION: L SPINE WHOLE COMPLETED DATE/TIME: 04/17/2018 4:43 pm REASON FOR STUDY: pain radiating down right hip and leg COMPARISON: None. NUMBER OF VIEWS: Five views including obliques. TECHNIQUE: AP, lateral, oblique, and sacral radiographic images acquired of the lumbar spine. LIMITATIONS: None. FINDINGS: MINERALIZATION: Normal. SEGMENTATION: Normal. No transitional anatomy. ALIGNMENT: Mild scoliosis. VERTEBRAE: No fracture. There is a prominent anterior osteophyte at L2. Smaller marginal osteophyte s at L4 and L5. DISCS: Preserved height. No significant osteophytes or end plate irregularity. POSTERIOR ELEMENTS: Hypertrophic facet changes from L4-S1. HARDWARE: None in the spine. PARASPINAL SOFT TISSUES: Normal. PELVIS: Intact as visualized. No fractures or worrisome bone lesions. SI joints intact. OTHER: No other significant finding. IMPRESSION: Mild scoliosis. Spondylosis. Facet arthropathy. TECHNICAL DOCUMENTATION: JOB ID: [id number] [employer]- All Rights Reserved Reading location - IP/workstation name: [email or web address]
--- NOTE | 2018-04-17 17:39 | ER Document Report ---
ED Neck/Back Problem - General Chief Complaint: Hip Pain Stated Complaint: SCIATICA PAIN Time Seen by Provider: 04/17/18 15:51 Mode of Arrival: Ambulatory Information source: Patient Notes: 63-year-old female presented to ED for complaint of right hip thigh and back pain for at least the last 3 months. Worse the last 3 weeks. She states she was moving some wood about 3 or 4 weeks ago and that is when the pain got worse. She states she has not fallen. Patient is alert and oriented respirations regular and unlabored walking with a even steady gait. TRAVEL OUTSIDE OF THE [place] IN LAST 30 DAYS: No - HPI Patient complains to provider of: Pain, Lower back - Right hip and thigh Onset: Other - These for the last 3 months worse the last 3 weeks Onset: Chronic Timing: Still present Severity: Moderate Pain Level: 4 Context: Lifting Recent injury: No Associated symptoms: Like prior neck/back pain, Radiation to leg - Right hip and thigh, Lower back pain. denies: Incontinence, Motor loss, Numbness/tingling , Sensory loss, Sweaty, Unable to urinate Exacerbated by: Movement of trunk, Sitting position Relieved by: Nothing Similar symptoms previously: Yes Recently seen / treated by doctor: Yes - Related Data Allergies/Adverse Reactions: levofloxacin [From Levaquin] Allergy (Unknown, Verified 03/29/18 12:43) Shellfish * [Shellfish] Allergy (Unknown, Verified 03/29/18 12:43) iodine Allergy (Verified 04/17/18 15:56) Past Medical History - General Information source: Patient - Social History Smoking Status: Current Every Day Smoker Cigarette use (# per day): Yes - 15-20 cigarettes a day Chew tobacco use (# tins/day): No Smoking Education Provided: Yes - 4 minutes Frequency of alcohol use: None Drug Abuse: None Lives with: Family Family History: COPD, Hypertension Patient has suicidal ideation: No Patient has homicidal ideation: No - Past Medical History Cardiac Medical History: Reports: Hx Coronary Artery Disease, Hx Hypercholesterolemia, Hx Hypertension, Hx Peripheral Vascular Disease, Other - Leaky valve Pulmonary Medical History: Reports: Hx Asthma, Hx COPD, Hx Sleep Apnea EENT Medical History: Reports: None Neurological Medical History: Reports: None Endocrine Medical History: Reports: Hx Hypothyroidism Renal/ Medical History: Reports: None Malignancy Medical History: Reports: None GI Medical History: Reports: Hx Gastritis, Hx Gastroesophageal Reflux Disease, Hx Ulcer, Hx Colonoscopy, Hx Endoscopy, Other - Hemorrhoids Musculoskeletal Medical History: Reports Hx Arthritis, Reports Hx Musculoskeletal Deformity, Reports Hx Musculoskeletal Trauma Skin Medical History: Reports None Psychiatric Medical History: Reports: Hx Anxiety, Hx Bipolar Disorder, Hx Depression Traumatic Medical History: Reports: None Infectious Medical History: Reports: None Past Surgical History: Reports: Hx Adenoidectomy, Hx Hysterectomy, Hx Oral Surgery - [place] teeth, Hx Orthopedic Surgery - carpal tunnel release, Hx Rectal Surgery - Orchiectomy, Hx Tonsillectomy, Hx Tubal Ligation - Immunizations Immunizations up to date: Yes Hx Diphtheria, Pertussis, Tetanus Vaccination: No Hx Pneumococcal Vaccination: 07/04/00 Review of Systems - Review of Systems Constitutional: No symptoms reported EENT: No symptoms reported Cardiovascular: No symptoms reported Respiratory: No symptoms reported Gastrointestinal: No symptoms reported Genitourinary: No symptoms reported Female Genitourinary: No symptoms reported Musculoskeletal: Back pain, Muscle pain, Muscle stiffness Skin: No symptoms reported Hematologic/Lymphatic: No symptoms reported Neurological/Psychological: No symptoms reported -: Yes All other systems reviewed and negative Physical Exam - Vital signs Vitals: Temp Pulse Resp BP Pulse Ox 98.1 F 75 20 141/78 H 99 04/17/18 15:45 04/17/18 15:45 04/17/18 15:45 04/17/18 15:45 04/17/18 15:45 Interpretation: Normal - General General appearance: Appears well, Alert - HEENT Head: Normocephalic, Atraumatic Eyes: Normal Pupils: PERRL - Respiratory Respiratory status: No respiratory distress Chest status: Nontender Breath sounds: Normal Chest palpation: Normal - Cardiovascular Rhythm: Regular Heart sounds: Normal auscultation Murmur: No - Abdominal Inspection: Normal Distension: No distension Bowel sounds: Normal Tenderness: Nontender Organomegaly: No organomegaly - Back Back: Normal, Tender. No: Deformity/step-off, CVA tenderness, Vertebra tenderness, Scars, Scoliosis, Wounds - Extremities General upper extremity: Normal inspection, Nontender, Normal color, Normal ROM , Normal temperature General lower extremity: Normal inspection, Nontender, Normal color, Normal ROM , Normal temperature, Normal weight bearing. No: Karen's sign - Neurological Neuro grossly intact: Yes Cognition: Normal Orientation: AAOx4 Reva Coma Scale Eye Opening: Spontaneous Miri Coma Scale Verbal: Oriented Miri Coma Scale Motor: Obeys Commands Reva Coma Scale Total: 15 Speech: Normal Motor strength normal: LUE, RUE, LLE, RLE Sensory: Normal - Psychological Associated symptoms: Normal affect, Normal mood - Skin Skin Temperature: Warm Skin Moisture: Dry Skin Color: Normal Course - Re-evaluation Re-evalutation: 04/18/18 02:53 After performing a Medical Screening Examination, I estimate there is LOW risk for EXPANDING OR RUPTURED ABDOMINAL AORTIC ANEURYSM, CAUDA EQUINA SYNDROME, EPIDURAL MASS LESION, or HERNIATED DISK CAUSING SEVERE SPINAL STENOSIS, thus I consider the discharge disposition reasonable. I have reevaluated this patient multiple times and no significant life threatening changes are noted. The patient and I have discussed the diagnosis and risks, and we agree with discharging home and close follow-up. We also discussed returning to the Emergency Department immediately if new or worsening symptoms occur with the understanding that symptoms and presentations can change. We have discussed the symptoms which are most concerning (e.g., saddle anesthesia, urinary or bowel incontinence or retention, changing or worsening pain) that necessitate immediate return. - Vital Signs Vital signs: Temp Pulse Resp BP Pulse Ox 98.1 F 64 18 131/74 H 100 04/17/18 17:48 04/17/18 17:48 04/17/18 17:48 04/17/18 17:48 04/17/18 17:48 - Diagnostic Test Radiology reviewed: Image reviewed, Reports reviewed Discharge - Discharge Clinical Impression: Low back pain Qualifiers: Chronicity: chronic Back pain laterality: bilateral Sciatica presence: with sciatica Sciatica laterality: sciatica of right side Qualified Code(s): M54.41 - Lumbago with sciatica, right side Condition: Stable Disposition: HOME, SELF-CARE Additional Instructions: Chronic Back Pain Chronic back pain (pain persisting longer than three months) is a common problem. A medical evaluation can look for herniated disc, arthritis, osteoporosis, tumors, and infections. But at least half the time, there's no obvious treatable cause. Anxiety and depression tend to worsen back pain. Ibuprofen or other anti-inflammatory medicine can help. A heating pad, used for 15-20 minutes at a time, can ease pain. For this type of back pain, narcotic medicines should be avoided. Muscle relaxers are rarely helpful unless you're having spasms. Activity is important. Find an aerobic exercise program that your back can tolerate. Too much rest makes back pain worse. Specific back exercises are usually prescribed to strengthen the back and abdominal muscles. Often, a physical therapist can help. Avoid heavy lifting, working while bent over, or standing with both knees straight. Most back pain patients do better with a firm mattress. If new symptoms of a "herniated disc" (radiation of pain, numbness, or tingling down the back of the leg or weakness in the leg) occur, you should be re-examined. Arthritis Your symptoms are due to arthritis. Arthritis is an inflammation of the joints. There are many types -- osteoarthritis (due to "wear and tear"), auto- immmune arthritis (such as rheumatoid, lupus, Nury's, and others), and crystal -induced arthritis (such as gout and pseudogout). The physician's examination, combined with laboratory tests, will determine the cause of your arthritis. All types of arthritis are treated with antiinflammatory medications. Other medication may be required for special types of arthritis, or if your problem does not respond to the antiinflammatory medicine. Local warmth may be helpful. Move the involved joints through the full range of motion daily. Mild exercise is usually still possible for most persons with arthritis (ask your physician). Swimming provides good exercise without damaging the joints. Contact the physician if you are worsening in any way. Sciatica Your symptoms suggest "sciatica." The pain of sciatica typically radiates down the leg. Numbness in the foot or calf may also occur. Sciatica is caused by irritation of the sciatic nerve or its branches. The irritation can be due to a herniated disk in the spine, swelling and inflammation in the muscles surrounding the sciatic nerve, or direct injury of the nerve itself. Most cases of sciatica will resolve with medical treatment. Bed rest is usually recommended initially. Surgery is only necessary when the condition will not improve with rest and antiinflammatory medication. Muscle relaxers are often given if muscle soreness is present. A CAT scan of the back may be performed if a herniated disk is suspected. Re-examination is necessary if you develop increasing numbness, localized weakness in the foot or ankle, or if the pain does not respond to rest. Toradol Injection You have been given an injection of ketorolac tromethamine (Toradol). This is an excellent, safe drug for pain control. It also has potent antiinflammatory action. You should have significant pain relief within about one hour. Toradol is not addicting and is non-sedating. It does not interfere with driving or work. Call or return if you develop itching, hives, shortness of breath, or rash. Stretching Exercises for the Back The physician has recommended that you begin stretching exercises for your back. These are often used even while the back is painful. However, you should notify the physician if the activities seem to increase your pain. PELVIC TILT: Lie flat on your back with knees bent. Tighten your stomach and buttock muscles so it flattens your lower back against the floor. Hold 10 seconds. Repeat 10 times, twice daily. KNEE RAISE: Lying on the back with knees bent, raise one knee to your chest, then the other. Hold both knees against the chest 10 seconds, then lower one knee at a time. Repeat 10 times, twice daily. PARTIAL TRUNK RAISE: Lie face down, arms at your sides. Keeping your waist on the floor, use your arms raise your chest up. Support yourself on your elbows for 30 seconds. Repeat twice daily, increasing the time to two minutes as you recover. STEROID MEDICATION: You have been given an injection of medicine of the cortisone/steroid class. This medication is used to control inflammation or allergy. It is often continued as a pill for a short period of time, until the acute process subsides. There are usually no side effects from short-term use of cortisone-like medications. Some persons feel an increased sense of well-being and are not sleepy at bedtime. Long-term use of cortisone medications is best avoided, unless required for a severe condition. If your condition does not remit, or relapses after the course of corticosteroid medication, you should consult your physician. ICE PACKS: Apply ice packs frequently against the painful area. Many different schedules are recommended, such as "20 minutes on, 20 minutes off" or "one hour ice, two hours rest." If you need to work, you may need to go longer between ice treatments. You should plan to have the area ice packed AT LEAST one fourth of the time. The ice should be applied over the wrap, tape, or splint, or over a layer of cloth -- not directly against the skin. Some ice bags have a built-in cloth and can be put directly on the skin. WARM PACKS: After approximately two days, apply gentle heat (such as a heating pad or hot water bottle) for about 20 to 30 minutes about every two hours -- at least four times daily. Warmth and elevation will help you make a more rapid recovery , and will ease the pain considerably. Do not use HOT heat, and never apply heat for longer than 30 minutes. The continuous heat can invisibly damage skin and muscles -- even when no burn is seen on the surface. Damaged muscles can make you MORE sore. FOLLOW-UP CARE: If you have been referred to a physician for follow-up care, call the physician s office for an appointment as you were instructed or within the next two days. If you experience worsening or a significant change in your symptoms, notify the physician immediately or return to the Emergency Department at any time for re-evaluation. Prescriptions: Cyclobenzaprine HCl [Flexeril 10 mg Tablet] 10 mg PO TIDP PRN #15 tab PRN Reason: Forms: Elevated Blood Pressure, Smoking Cessation Education Referrals: [facility] [Provider Group] - Follow up as needed
[2018-04-17 17:48] VITALS: BP 131/74
== END 2018-04-17 17:49 | disposition home or self-care (01) ==
LOC: ER 15:26
DX: M54.41 Lumbago with sciatica, right side (principal); F17.210 Nicotine dependence, cigarettes, uncomplicated; I25.10 Atherosclerotic heart disease of native coronary artery without angina pectoris; E78.00 Pure hypercholesterolemia, unspecified; I10 Essential (primary) hypertension; J44.9 Chronic obstructive pulmonary disease, unspecified; Z91.013 Allergy to seafood; Z90.710 Acquired absence of both cervix and uterus
CPT/HCPCS: 99406; 99283; 96372; 72110; J1885; J1100